=== PATIENT | male | born 1980 | race Caucasian/White ===

== ENCOUNTER 2021-01-29 08:38 | Emergency (ER) | payer OTHER, SELFPAY ==
[2021-01-29] VITALS (14 sets, daily range): BP systolic 108–134; BP diastolic 66–88; PULSE 81–95; RESP 17–32; TEMP 37.4; O2SAT 95–98
--- NOTE | ~2021-01-29 | XR_ITS ---
EXAMINATION: XR chest 2V 01/29/2021 09:09 INDICATION: Chest pain and hypertension PROCEDURE: 2 view chest COMPARISON: No prior studies for comparison. FINDINGS: The lungs are clear. Mild cardiomegaly. There are no pleural effusions. There is no pneumo thorax suspected. IMPRESSION: 1: NO ACUTE CARDIOPULMONARY DISEASE. Reviewed, dictated and finalized at location B. SCORER
--- NOTE | 2021-01-29 08:48 | ECG_ITS ---
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
[2021-01-29 09:02] LABS: Basophils Absolute Auto 0.1 K/mm3 (0.0-0.1); Basophils Percent Auto 1.5 % (0.2-1.2); Eosinophils Absolute Auto 0.2 K/mm3 (0-0.3); Eosinophils Percent Auto 3.7 % (0-4.4); Hematocrit 44.9 % (42.0-52.0); Hemoglobin 15.3 g/dL (14.0-18.0); Immature Granulocyte Absolute 0.02 K/mm3 (0.00-0.031); Immature Granulocyte Percent A 0.3 % (0-0.5); Lymphocytes Absolute Auto 1.68 K/mm3 (0.9-3.2); Lymphocytes Percent Auto 28.5 % (18.3-44.2); Mean Corpuscular HGB Conc 34.1 g/dl (32-36); Mean Corpuscular Hemoglobin 29.9 pg (26-34); Mean Corpuscular Volume 87.7 fl (80-100); Mean Platelet Volume 10.4 fl (7.4-10.4); Monocytes Absolute Auto 0.7 K/mm3 (0.1-0.6); Neutrophils Absolute Auto 3.2 K/mm3 (1.3-6.7); Platelet Count Result 219 k/mm3 (150-375); Red Blood Count 5.12 M/mm3 (4.6-6.20); Red Cell Distribution Width 12.6 % (11.5-14.5); White Blood Count 5.9 K/mm3 (4.5-10.0)
[2021-01-29 09:13] LABS: INR 0.9; Prothrombin Time 12.5 Seconds (11.1-14.7)
[2021-01-29 09:14] LABS: Partial Thromboplastin Time 27.5 SECONDS (22.3-36.8)
[2021-01-29 09:17] LABS: Alanine Aminotransferase 74 U/L (4-50); Albumin Level 4.8 g/dL (3.5-5.1); Alkaline Phosphatase 74 U/L (38-126); Anion Gap 9 mmol/L (8-16); Aspartate Amino Transferase 43 U/L (17-59); Bilirubin,Total 0.5 mg/dL (0.2-1.3); Blood Urea Nitrogen 13 mg/dL (9-20); Calcium 9.5 mg/dL (8.4-10.2); Carbon Dioxide 28 mmol/L (22-30); Chloride 96 mmol/L (98-107); Estimated Glomerular Filt Rate > 60; Glucose 103 mg/dL (65-110); Lipase 96 U/L (23-300); Potassium 4.4 mmol/L (3.4-5.0); Sodium 133 mmol/L (137-145)
[2021-01-29 09:28] LABS: Troponin I < 0.012 ng/mL (0.000-0.034)
[2021-01-29] MEDS: KETOROLAC 15 MG/ML VIAL (*BKC) IV PUSH (10:14)
--- NOTE | 2021-01-29 11:29 | ED.CHESTPAIN ---
HPI - Chest Pain General Chief Complaint: Chest Pain Stated Complaint: Chest pain. 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 Patient reports he has a history of hypertension and when he complained of discomfort to the right side of his chest he has coworkers told him that it was a sign of a heart attack. Patient reports that he checked his blood pressure and it was very elevated. The patient denies any syncopal episode, shortness of breath, nausea, vomiting. Patient denies pain presently. Patient denies smoking or history of cardiac event or MIs. Related Data Allergies Allergy/AdvReac Type Severity Reaction Status Date / Time No Known Allergies Allergy Unverified 03/25/18 09:20 Review of Systems Review of Systems: CONSTITUTIONAL: Denies fever, chills, or sweats. EYES: Denies visual changes, redness, or discharge. ENT: Denies rhinorrhea, congestion, sore throat, or otalgia. CARDIOVASCULAR: Reports right chest wall pain denies chest pain, palpitations, or edema. RESPIRATORY: Denies cough or dyspnea. GASTROINTESTINAL: Denies abdominal pain, nausea, vomiting, or diarrhea. GENITOURINARY: Denies dysuria or hematuria. SKIN: Denies rash or itching. MUSCULOSKELETAL: Denies back pain, joint pain, or myalgia. NEUROLOGIC: Denies headache, numbness, dizziness, or weakness. PSYCHIATRIC: Denies anxiety or depression. Exam Narrative: GENERAL: Well-appearing, well-nourished, and in no acute distress. No sign of discomfort playing on his cell phone. HEAD: Normocephalic, atraumatic. EYES: PERRLA and EOMI. ENT: Nares clear, no rhinorrhea or epistaxis. Mucous membranes moist. Or Bilateral TMs pearly hernandez nonbulging NECK: Supple. No adenopathy or masses. Range of motion intact. CHEST: Pain elicited with palpation of right pectoral muscle and activity of right arm. No pain at rest. Clear to auscultation. No respiratory distress. No wheezes rales or rhonchi HEART: Regular rate and rhythm. No murmur heard. Normal peripheral pulses. ABDOMEN: Soft, nontender, nondistended, normal active bowel sounds. EXTREMITIES: Normal range of motion. No edema. SKIN: Warm, dry, no rash. NEURO: No focal deficits. Alert and oriented x3. PSYCH: Normal mood and affect. Course Vital Signs Vital signs: Vital Signs Temperature 99.4 F 01/29/21 08:44 Pulse Rate 95 01/29/21 08:44 Respiratory Rate 18 01/29/21 08:44 Blood Pressure 134/88 01/29/21 08:44 Pulse Oximetry 98 01/29/21 08:44 Temperature 99.4 F 01/29/21 08:44 Pulse Rate 92 01/29/21 12:21 Respiratory Rate 32 H 01/29/21 12:21 Blood Pressure 108/66 01/29/21 11:20 Pulse Oximetry 97 01/29/21 12:21 MDM - Chest Pain MDM Narrative Medical decision making narrative: Patient does not have chest pain at this time. Patient's initial and delta troponin have been negative. Patient's heart score is 1. Patient does not show any signs of acute DE. Patient's pain appears to be musculoskeletal and patient has been given instructions on management. Patient has been instructed to follow-up with his primary care provider for further evaluation of the symptoms. Patient has been instructed to return to emergency department if he has any returning or emergent symptoms. Differential Diagnosis Differential diagnosis: Likely fracture of rib, pneumothorax, stable angina, unstable angina pectoris, atypical chest pain, st elevation myocardial infarction, costochondritis, chest pain and biliary colic Lab Data Result diagrams: 01/29/21 08:55 01/29/21 08:55 Labs: Lab Results 01/29/21 01/29/21 01/29/21 Range/Units 08:55 08:55 08:55 WBC 5.9
[2021-01-29 12:13] LABS: Troponin I < 0.012 ng/mL (0.000-0.034)
== END 2021-01-30 02:34 | disposition home or self-care (01) ==
PROVIDERS: Emergency Provider Emergency Medicine
DX: R07.89 Other chest pain (principal); I10 Essential (primary) hypertension; R94.31 Abnormal electrocardiogram [ECG] [EKG]
CPT/HCPCS: 36415; 71046; 80053; 83690; 84484; 85025; 85610; 85730; 93005; 96374; 99284; J1885

== ENCOUNTER 2022-11-08 13:38 | Emergency (ER) | payer OTHER, SELFPAY ==
--- NOTE | ~2022-11-08 | XR_ITS ---
EXAMINATION: XR hand RT min 3V DATE: 11/08/2022 14:42 INDICATION: Right hand pain post fall TECHNIQUE: Posteroanterior, oblique and lateral views of the right hand were obtained. COMPARISON: None. FINDINGS: Bone alignment is normal. No fracture. Mild osteoarthritis at the distal radioulnar joint. There is s ome soft tissue swelling at the radial side of the hand including at the bases of the first-third dig its. IMPRESSION: 1. No acute osseous abnormality. Reviewed, dictated and finalized at location A.
--- NOTE | ~2022-11-08 | XR_ITS ---
EXAMINATION: XR finger 4th LT min 2V INDICATION: Left fourth finger pain TECHNIQUE: Three views of the left fourth finger are obtained. COMPARISON: None available FINDINGS: The provided views are nonstandard. No definite fracture is identified. There is mild osteo arthritis of the interphalangeal joints. There is soft tissue swelling of the fourth finger. IMPRESSION: 1. No definite osseous abnormality identified, views nonstandard. Reviewed, dictated and finalized at location B.
--- NOTE | ~2022-11-08 | XR_ITS ---
EXAMINATION: XR knee LT 3V DATE: 11/08/2022 14:42 INDICATION: Left knee injury and pain. TECHNIQUE: 3 views of left knee were obtained. COMPARISON: Left knee radiographs 07/01/16 FINDINGS: Bone alignment is normal. No fracture. There is mild osteoarthritis of patellofemoral mandy rtment. No knee joint effusion. IMPRESSION: 1. Mild left knee osteoarthritis. Reviewed, dictated and finalized at location A.
[2022-11-08 13:40] VITALS: BP 108/74; PULSE 106; RESP 14; TEMP 36.3; O2SAT 99
[2022-11-08] MEDS: ACETAMINOPHEN 500 MG TABLET 1000 MG PO (15:07)
[2022-11-08] MEDS: IBUPROFEN 400 MG TABLET 800 MG PO (15:08)
--- NOTE | 2022-11-08 15:24 | WC.ED.TRAUMA ---
HPI - Trauma General Chief Complaint: Extremity Injury, Upper Stated Complaint: bilateral hand pain, fall Time Seen by Provider: 11/08/22 14:12 Source: patient Mode of arrival: ambulatory Limitations: no limitations History of Present Illness HPI narrative: 42-year-old male presents today with complaints of left knee pain, left fourth digit pain, and right hand pain after a fall he sustained at work. Patient states he thinks he missed a step when he hit his right knee on the ground his left fourth digit went underneath of him and his right hand hit the ground. Patient states prior to arrival he only noticed that his left knee was hurting but after arrival he noticed the other injuries. Patient has full range of motion to all extremities. Patient has not taken any analgesics prior to arrival. Related Data Allergies Allergy/AdvReac Type Severity Reaction Status Date / Time No Known Allergies Allergy Unverified 11/08/22 13:46 Review of Systems Review of Systems: All systems reviewed & are unremarkable except as noted in HPI and below Exam Const: General: cooperative, healthy appearing, comfortable, no acute distress and well developed Orientation/consciousness: patient oriented x3 HENMT: Head: normal to inspection Eyes: General: appearance normal, both eyes and all related structures Resp: Effort & Inspection: normal respiratory effort and able to speak in complete sentences Auscultation: clear to auscultation bilaterally Cardio: Rate: regular rate Rhythm: regular rhythm Heart sounds: S1 normal heart sound present and S2 normal heart sound present Neuro: General: patient oriented x3 Course Vital Signs Vital signs: Vital Signs Temperature 97.3 F L 11/08/22 13:40 Pulse Rate 106 H 11/08/22 13:40 Respiratory Rate 14 11/08/22 13:40 Blood Pressure 108/74 11/08/22 13:40 Pulse Oximetry 99 11/08/22 13:40 Oxygen Delivery Room Air 11/08/22 13:40 Temperature 97.3 F L 11/08/22 13:40 Pulse Rate 98 11/08/22 15:38 Respiratory Rate 14 11/08/22 15:38 Blood Pressure 116/77 11/08/22 15:38 Pulse Oximetry 99 11/08/22 15:38 Oxygen Delivery Room Air 11/08/22 13:40 MDM - Trauma MDM Narrative Medical decision making narrative: 42-year-old male HPI as noted. Differentials to include finger fracture, hand fracture, knee pain, fall. Work-up includes a x-ray of the right hand x-ray of the left fourth digit and x-ray of the left knee. Patient with full range of motion but tenderness to palpation to all 3 areas. No deformity noted. X-ray of the right hand shows swelling to the radial side of the hand. No ecchymosis noted on that hand. Again patient with full range of motion. Finger x-ray shows no acute process. Knee x-ray also shows no acute process. All 3 x-rays did show arthritis. Patient was informed. Tylenol ibuprofen given. Patient able to ambulate and was discharged. Medical Records Attestation: I reviewed the patient's medical records. Imaging Data Attestation: I personally reviewed and interpreted this imaging study as follows: Radiologist's impression: Impressions Finger X-Ray 11/08/22 14:49 IMPRESSION: 1. No definite osseous abnormality identified, views nonstandard. Hand X-Ray 11/08/22 14:49 IMPRESSION: 1. No acute osseous abnormality. Knee X-Ray 11/08/22 14:49 IMPRESSION: 1. Mild left knee osteoarthritis. Discharge Plan Discharge Clinical Impression: Fall, Acute pain of left knee, Hand pain, right, Finger pain, Arthritis Patient Disposition: Home, Self-Care Condition: Stable Instructions: Antibiotic Form Additional Instructions: Your xrays showed no acute process today. Follow up with primary if pain persists as further work up might be needed at that time. Tylenol/ibuprofen per package directions for pain. Follow-up/Referrals: PHYSICIAN NOT ON STAFF,NONSTAFF [Primary Care Provider] - Time of Disposition: 15:
[2022-11-08 15:38] VITALS: BP 116/77; PULSE 98; RESP 14; O2SAT 99
== END 2022-11-08 15:48 | disposition home or self-care (01) ==
PROVIDERS: Emergency Provider Nurse Practitioner Family
DX: M25.562 Pain in left knee (principal); M79.641 Pain in right hand; M79.645 Pain in left finger(s); W10.9XXA Fall (on) (from) unspecified stairs and steps, initial encounter; Y99.0 Civilian activity done for income or pay
CPT/HCPCS: 73130; 73140; 73562; 99284; A9270

== ENCOUNTER 2023-12-06 12:24 | Emergency (ER) | payer SELFPAY ==
--- NOTE | ~2023-12-06 | CT_ITS ---
EXAMINATION: CT abdomen pelvis wo con DATE: 12/06/2023 16:09 INDICATION: L flank pain TECHNIQUE: Computed tomography (CT) of the abdomen and pelvis was performed without intravenous contr ast. Automated exposure control and iterative reconstruction technique were employed. The dose-length product was 559.88 mGy-cm. COMPARISON: None. FINDINGS: Lower thorax: Unremarkable Liver: Fatty infiltration. Biliary/Gallbladder: Gallbladder is normal. No bile duct dilation. Pancreas: No mass or duct dilation. Spleen: Normal. Adrenals:No mass. Kidneys: No suspicious mass, obstructing stone, or hydronephrosis. GI tract: No small or large bowel dilation. Normal appendix. Mesentery/Peritoneum: No ascites, mass, or free air. Retroperitoneum: No mass. Atherosclerotic abdominal aortic and/or arterial calcifications. Pelvis: Distended urinary bladder with mild wall thickening. Normal sized prostate. Soft Tissues: Small, fat-containing umbilical and bilateral inguinal hernias Bones: No acute osseous finding. IMPRESSION: Hepatic steatosis. Distended urinary bladder with wall thickening, correlate with urinalysis. Reviewed, dictated and finalized at location K.
[2023-12-06 12:27] VITALS: BP 105/65; PULSE 81; RESP 16; TEMP 36.2; O2SAT 99
--- NOTE | 2023-12-06 14:41 | ED.ABDPAIN ---
HPI - Abdominal Pain General Chief Complaint: Abdominal Pain <Munira Barahona PA-C - Last Filed: 12/06/23 14:43> Stated Complaint: abd pain <Munira Barahona PA-C - Last Filed: 12/06/23 14:43> Time Seen by Provider: 12/06/23 14:50 <Munira Barahona PA-C - Last Filed: 12/06/23 14:43> Focused HPI: 43-year-old male with no past medical history presents to the emergency department for left flank pain for 1 day. Patient states the pain is worse when he lifts up heavy objects. States he has a remote history of similar pain but is unsure with the cause of it was. Denies dysuria, hematuria, N/V/D, history of kidney stones, fever. States he took ibuprofen this morning with some improvement GENERAL: Well-appearing, well-nourished, and in no acute distress. HEAD: Normocephalic, atraumatic. CHEST: Clear to auscultation. ?No respiratory distress. ABD: Minimal tenderness to the left flank. No rebound, guarding rigidity. No CVA tenderness. HEART: Regular rate and rhythm.? NEURO: ?Alert and oriented x3. Patient screened in triage and initial orders placed.? ?Additional care and disposition to be based upon?diagnostic testing and treatment. <Munira Barahona PA-C - Last Filed: 12/06/23 14:43> Related Data Allergies/Adverse Reactions: Allergies Allergy/AdvReac Type Severity Reaction Status Date / Time No Known Allergies Allergy Unverified 11/08/22 13:46 <Munira Barahona PA-C - Last Filed: 12/06/23 14:43> Review of Systems Review of Systems: All systems reviewed & are unremarkable except as noted in HPI and below <Paul Jeffers MD - Last Filed: 12/06/23 18:58> PMFSH Past Medical History Medical History: Medical History (Updated 12/06/23 @ 18:54 by Paul Jeffers MD) No significant past medical history <Munira Barahona PA-C - Last Filed: 12/06/23 14:43> Surgical History Surgical History: Surgical History (Updated 12/06/23 @ 18:54 by Paul Jeffers MD) No significant past surgical history <Munira Barahona PA-C - Last Filed: 12/06/23 14:43> Social History Social History: Social History (Updated 12/06/23 @ 18:54 by Paul Jeffers MD) Smoking status: Never smoker Alcohol intake: never Substance use: never <Munira Barahona PA-C - Last Filed: 12/06/23 14:43> Exam Narrative: GENERAL: Well-developed, well-nourished, and in no acute distress. HEAD: Normocephalic, atraumatic. EYES: PERRLA and EOMI. CHEST: Clear to auscultation. No respiratory distress. No wheezes rales or rhonchi HEART: Regular rate and rhythm. No murmur heard. Normal peripheral pulses. ABDOMEN: Soft, mild tenderness to palpation over the left flank without rebound or guarding, nondistended, normal active bowel sounds. No CVA tenderness EXTREMITIES: Normal range of motion. No edema. SKIN: Warm, dry, no rash. NEURO: Alert and oriented x3. No focal deficit. Moving all 4 limbs spontaneously PSYCH: Normal mood and affect. <Paul Jeffers MD - Last Filed: 12/06/23 18:58> Course Course Emergency Course: 15:10 - I agree with the assessment as documented in the [facility]SE. 17:16 - CBC unremarkable. Chemistries demonstrate mild hyponatremia sodium 136 but is otherwise unremarkable. UA unremarkable. CT abdomen pelvis demonstrates a distended bladder but is otherwise not concerning for acute intra-abdominal process. Bladder scan prior to urination demonstrate approximately 500 cc of fluid in the bladder. The patient voided approximately 200 cc with approximately 300 cc retained thereafter. I have concern for urinary retention as the possible cause of the patient's pain. I discussed treatment options including catheter placement, tamsulosin and urology follow-up. The patient requests to avoid catheter placement and states he will take oral medications and follow-up with his primary care doctor and Urology. We discussed the risks of avoiding catheter placement, includ
[2023-12-06 14:52] VITALS: BP 118/75; PULSE 84; RESP 20; TEMP 36.6; O2SAT 99
[2023-12-06 15:03] LABS: Add Urine Microscopic? NO; Appearance Urine Clear (Clear); Bilirubin Urine Negative (Negative); Blood Urine Negative (Negative); Color Urine Yellow (Yellow); Glucose Urine UA Negative (Negative); Ketones Urine Negative (Negative); Leukocyte Esterase Ur Negative LEU/UL (Negative); Nitrate Urine Negative (Negative); Protein Urine Negative (Negative); Specific Grav Ur 1.007 (1.001-1.035); Urobilinogen Urine 0.2 mg/dL (<2.0); pH Urine 6.5 (5.0-9.0)
[2023-12-06 15:20] LABS: Basophils Absolute Auto 0.1 K/mm3 (0.0-0.1); Basophils Percent Auto 1.6 % (0.2-1.2); Eosinophils Absolute Auto 0.2 K/mm3 (0-0.3); Hematocrit 42.6 % (42.0-52.0); Hemoglobin 14.6 g/dL (14.0-18.0); Immature Granulocyte Absolute 0.02 K/mm3 (0.00-0.031); Immature Granulocyte Percent A 0.3 % (0-0.5); Lymphocytes Absolute Auto 2.17 K/mm3 (0.9-3.2); Mean Corpuscular HGB Conc 34.3 g/dl (32-36); Mean Corpuscular Volume 87.5 fl (80-100); Mean Platelet Volume 10.8 fl (7.4-10.4); Monocytes Absolute Auto 0.8 K/mm3 (0.1-0.6); Monocytes Percent Auto 12.1 % (2.6-8.5); Neutrophils Absolute Auto 3.1 K/mm3 (1.3-6.7); Platelet Count Result 229 k/mm3 (150-375); Red Blood Count 4.87 M/mm3 (4.6-6.20); Red Cell Distribution Width 12.8 % (11.5-14.5); White Blood Count 6.4 K/mm3 (4.5-10.0)
[2023-12-06 15:30] LABS: Alanine Aminotransferase 38 U/L (6-50); Albumin Level 4.5 g/dL (3.5-5.1); Alkaline Phosphatase 59 U/L (38-126); Anion Gap 9 mmol/L (4-12); Aspartate Amino Transferase 35 U/L (17-59); Bilirubin,Total 0.5 mg/dL (0.2-1.3); Blood Urea Nitrogen 11 mg/dL (9-20); Calcium 9.3 mg/dL (8.4-10.2); Carbon Dioxide 29 mmol/L (22-30); Chloride 98 mmol/L (98-107); Estimated Glomerular Filt Rate > 60; Glucose 90 mg/dL (65-110); Lipase 82 U/L (23-300); Sodium 136 mmol/L (137-145)
[2023-12-06] MEDS: ACETAMINOPHEN 500 MG TABLET 1000 MG PO (16:33)
[2023-12-06 17:37] VITALS: BP 104/68; PULSE 86; RESP 18; TEMP 37.1; O2SAT 99
== END 2023-12-06 17:39 | disposition home or self-care (01) ==
PROVIDERS: Physician Assistant; Emergency Provider Preventive Medicine Aerospace Medicine
DX: R10.9 Unspecified abdominal pain (principal); R33.9 Retention of urine, unspecified; K76.0 Fatty (change of) liver, not elsewhere classified
CPT/HCPCS: 36415; 74176; 80053; 81003; 83690; 85025; 99284; A9270

== ENCOUNTER 2024-01-06 11:49 | Emergency (ER) | payer SELFPAY ==
[2024-01-06 11:57] VITALS: BP 111/88; PULSE 83; RESP 16; TEMP 36.6; O2SAT 99
--- NOTE | 2024-01-06 12:29 | ED.EAR ---
HPI - Ear Problem General Chief complaint: Ear Stated complaint: Clean ears Time Seen by Provider: 01/06/24 12:30 Source: patient Mode of arrival: ambulatory Limitations: no limitations History of Present Illness HPI Narrative: 43-year-old male presented for cerumen impaction requesting ear cleaning. He states he was seen by the rehabilitation teacher and was told he has significant buildup. Reports right ear pain and decreased hearing bilaterally. He denies tinnitus, dizziness. MD Complaint: ear pain Related Data Home Medications Medication Instructions Recorded Confirmed ergocalciferol (vitamin D2) 1,250 1,250 mcg PO DAILY 01/06/24 01/06/24 mcg (50,000 unit) capsule lisinopril 20 mg tablet 20 mg PO DAILY 01/06/24 01/06/24 Allergies Allergy/AdvReac Type Severity Reaction Status Date / Time No Known Allergies Allergy Verified 01/06/24 12:14 Review of Systems Review of Systems: CONSTITUTIONAL: Denies malaise, chills, or fever. EYES: Denies visual changes, redness, or discharge. ENT: Denies rhinorrhea, congestion, sinus pain, and sore throat. Reports ears clogged CARDIOVASCULAR: Denies chest pain, palpitations, or edema. RESPIRATORY: Denies cough or dyspnea. SKIN: Denies rash or itching. NEUROLOGIC: Denies headache. All systems reviewed & are unremarkable except as noted in HPI and below PMFSH Past Medical History Medical History No significant past medical history Surgical History Surgical History No significant past surgical history Social History Social History Smoking status: Never smoker Alcohol intake: never Substance use: never Comments At time of signature, agree with nursing past medical, surgical, social and family history. There is no relevant family history pertinent to the presenting complaint Exam Narrative: GENERAL: Well-appearing EYES: conjunctivae clear ENT: Nares clear. Mucous membranes moist. TMs unable to visualize bilaterally due to cerumen impactions. Oropharynx not erythematous without lesions. CHEST: Clear to auscultation, HEART: Regular rate and rhythm NEURO: Alert and oriented x3. PSYCH: Normal mood and affect Course Course Emergency Course: Patient is aware of diagnosis, understands and agrees to treatment plan. Anticipatory guidance given. Patient agrees to follow-up as directed and is aware of reasons to seek care at the emergency department. Portions of this record may have been created with voice recognition software Level of Care: Express Care Visit Vital Signs Vital signs: Vital Signs Temperature 97.8 F 01/06/24 11:57 Pulse Rate 83 01/06/24 11:57 Respiratory Rate 16 01/06/24 11:57 Blood Pressure 111/88 01/06/24 11:57 Pulse Oximetry 99 01/06/24 11:57 Oxygen Delivery Room Air 01/06/24 11:57 Temperature 97.8 F 01/06/24 11:57 Pulse Rate 83 01/06/24 11:57 Respiratory Rate 16 01/06/24 11:57 Blood Pressure 111/88 01/06/24 11:57 Pulse Oximetry 99 01/06/24 11:57 Oxygen Delivery Room Air 01/06/24 11:57 Reviewed Procedures Ear Wax Removal Both Ears: Cerumenolytic Used: other ( equal parts warm water and hydrogen peroxide) Results: Re-examined: cerumen removed completely TM Examination: TM(s) intact, normal appearance (Left) and other (Unable to visualize Right TM due to canal swelling and drainage c/w otitis externa) Ear Canal Exam: bleeding Noted (scant, right canal) Patient Tolerated Procedure: well Technique: ear canal irrigated and ear canal curetted Additional Comments: Pt noted to have Right otitis externa after cerumen removed. Also, pieces of dried cotton balls were removed from both ear canals. Medical Decision Making MDM Narrative Medical decision making narrative: Pt with bilateral cerumen impaction, Right otitis externa after cerumen removed. Pt also noted to have pieces of dried cotton balls removed from both ear canals. Reviewed Rx's with pt and sister. Pt to f/u with hearing center. Advised supportive measures and signs/symptoms to go to the ER. Patient is appropriate for outpatient treatment and follow-up. Differential Diagnosis Differential Diagnosis: Coronavirus, strep pharyngitis, allergic rhinitis, upper respiratory tract infection, sinusitis, rhinosinusitis, nasopharyngitis, viral pharyngitis, otitis media, otitis externa, eustachian tube dysfunction, foreign body, cerumen impaction. Vital Signs Vital Signs: Vital Signs Temperature 97.8 F 01/06/24 11:57 Pulse Rate 83 01/06/24 11:57 Respiratory Rate 16 01/06/24 11:57 Blood Pressure 111/88 01/06/24 11:57 Pulse Oximetry 99 01/06/24 11:57 Oxygen Delivery Room Air 01/06/24 11:57 Temperature 97.8 F 01/06/24 11:57 Pulse Rate 83 01/06/24 11:57 Respiratory Rate 16 01/06/24 11:57 Blood Pressure 111/88 01/06/24 11:57 Pulse Oximetry 99 01/06/24 11:57 Oxygen Delivery Room Air 01/06/24 11:57 Discharge Plan Discharge Clinical Impression: Cerumen impaction, Otitis externa Patient Disposition: Home, Self-Care Condition: Stable Instructions: Antibiotic Form, How to Use Ear Drops (ED) Additional Instructions: Use the antibiotic drops as directed to right ear. Do NOT put anything into the ear (including cotton balls) Once infection is healed, you can use a earwax softening agent such as [id number] Debrox or a mixture of 1 part hydrogen peroxide in 1 part warm water several times weekly to keep your earwax soft and prevent further impaction. Please follow-up with your primary care doctor if you develop new symptoms. 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 If you have urgent concerns please go to the ER. Prescriptions: New ofloxacin 0.3 % drops 10 drp RIGHT EAR DAILY 7 Days Qty: 10 0RF No Action lisinopril 20 mg tablet 20 mg PO DAILY ergocalciferol (vitamin D2) 1,250 mcg (50,000 unit) capsule 1,250 mcg PO DAILY Follow-up/Referrals: Koko,SUDHA Velez [Primary Care Provider] -
== END 2024-01-06 13:05 | disposition home or self-care (01) ==
PROVIDERS: Emergency Provider Nurse Practitioner Family; PCP Nurse Practitioner Family
DX: H61.23 Impacted cerumen, bilateral (principal); H60.91 Unspecified otitis externa, right ear
CPT/HCPCS: 69210; 99213; G0463

== ENCOUNTER 2024-01-16 15:49 | Emergency (ER) | payer OTHER, SELFPAY ==
--- NOTE | ~2024-01-16 | XR_ITS ---
HISTORY: ground level fall today at work. limited ROM COMPARISON: None TECHNIQUE: 2 views of the right humerus were performed FINDINGS: No acute fracture. The acromioclavicular joint is unremarkable. The visualized portion of the scapula is unremarkable Normal mineralization. IMPRESSION: No acute right humerus fracture, as detailed above. Reviewed, dictated and finalized at location A. OPERATOR
--- NOTE | ~2024-01-16 | CT_ITS ---
History: Ground-level fall PROCEDURE: CT left shoulder without intravenous contrast. COMPARISON: None TECHNIQUE: Multiple contiguous axial images of the left shoulder were performed without the administration of in travenous contrast. DLP: 299 mGy-cm FINDINGS: Oblique lucency within the mid portion of the spine of the left scapula felt to be a nutrient foramen rather than acute fracture. In addition, there is an oblique lucency with dense osseous structures along the lateral margin of th e humeral head, which is well-corticated likely not an acute fracture, possibly calcific tendinosis. Impression: No discrete acute fracture deformity within the left shoulder. Follow-up examination with noncontrast enhanced MRI for additional characterization is recommended. Reviewed, dictated and finalized at location A. CULTURAL CONSULTANT Impression: No discrete acute fracture deformity within the left shoulder. Follow-up examin ation with noncontrast enhanced MRI for additional characterization is recommen ded.
--- NOTE | ~2024-01-16 | XR_ITS ---
HISTORY: ground level fall at work today. limited ROM COMPARISON: None TECHNIQUE: 2 views of the left shoulder were performed FINDINGS: No acute fracture. Two rounded ossific densities identified adjacent to the humeral head, for which calcific tendinosis is suspected. No internal or external views are submitted, limiting the evaluation for an acute humer al head fracture or dislocation. The visualized portion of the adjacent left lung is clear. IMPRESSION: Limited examination of the left shoulder, as detailed above. Reviewed, dictated and finalized at location A. OYEE SERVICE OFFICER
[2024-01-16 15:51] VITALS: BP 119/93; PULSE 57; RESP 18; TEMP 36.8; O2SAT 99
[2024-01-16 15:58] VITALS: BP 119/93; O2SAT 98
[2024-01-16] MEDS: MORPHINE SULFATE (*CRX) 2 MG/ML INJ IV PUSH (16:55)
[2024-01-16 17:47] VITALS: BP 131/70; PULSE 70; RESP 16; O2SAT 97
--- NOTE | 2024-01-16 18:14 | ED.UPPEXIN ---
HPI - Extremity Injury (Upper) General Chief Complaint: Extremity Injury, Upper Stated Complaint: RUE pain s/p mechanical GLF Time Seen by Provider: 01/16/24 16:03 History of Present Illness HPI narrative: Patient is a 44-year-old male who presents ER status post fall. He is at work when he stepped on a dish that was on the ground causing him to fall while holding another dish. He fell on outstretched arms. He has pain to the right she humerus in the middle the shaft and he also has pain at the left shoulder. Has decreased range of motion at the left shoulder. Did not lose consciousness or strike his head. No numbness or tingling to the extremities. Related Data Home Medications Medication Instructions Recorded Confirmed ergocalciferol (vitamin D2) 1,250 1,250 mcg PO DAILY 01/06/24 01/06/24 mcg (50,000 unit) capsule lisinopril 20 mg tablet 20 mg PO DAILY 01/06/24 01/06/24 Allergies Allergy/AdvReac Type Severity Reaction Status Date / Time No Known Allergies Allergy Verified 01/06/24 12:14 Review of Systems Review of Systems: All systems reviewed & are unremarkable except as noted in HPI and below Constitutional: Constitutional: Reports no additional constitutional complaints Cardiovascular: Cardiovascular: Reports no additional cardiovascular complaints Respiratory: Respiratory: Reports no additional respiratory complaints Musculoskeletal: Musculoskeletal: Reports arthralgias and Denies joint swelling Neurologic: Reports system reviewed and no additional complaints, except as documented PMFSH Past Medical History Medical History (Updated 01/16/24 @ 19:25 by Barry Ford MD) No significant past medical history Surgical History Surgical History (Updated 01/16/24 @ 18:19 by Barry Ford MD) H/O wrist surgery Social History Social History Smoking status: Never smoker Alcohol intake: never Substance use: never Exam Narrative: GENERAL: Well-appearing, well-nourished, and in no acute distress. HEAD: Normocephalic, atraumatic. ENT: Mucous membranes moist. CHEST: Clear to auscultation. No respiratory distress. HEART: Regular rate and rhythm. Normal peripheral pulses. EXTREMITIES: TTP at the left shoulder with limited ROM, normal ROM at the left elbow/wrist. Mild tenderness right mid-humerus SKIN: Warm, dry, no rash. NEURO: Alert and oriented x3. PSYCH: Normal mood and affect. Course Course Emergency Course: Patient informed of results. Shoulder sprain, discussed calcific tendinosis, discharge home. Vital Signs Vital signs: Vital Signs Temperature 98.3 F 01/16/24 15:51 Pulse Rate 57 L 01/16/24 15:51 Respiratory Rate 18 01/16/24 15:51 Blood Pressure 119/93 H 01/16/24 15:51 Pulse Oximetry 99 01/16/24 15:51 Oxygen Delivery Room Air 01/16/24 15:51 Temperature 98.3 F 01/16/24 15:51 Pulse Rate 70 01/16/24 17:47 Respiratory Rate 16 01/16/24 17:47 Blood Pressure 131/93 H 01/16/24 18:17 Pulse Oximetry 98 01/16/24 18:17 Oxygen Delivery Room Air 01/16/24 15:51 MDM - Extremity Injury (Upper) Imaging Data Radiologist's impression: ITS Impressions Shoulder X-Ray 01/16/24 16:44 IMPRESSION: Limited examination of the left shoulder, as detailed above. Humerus X-Ray 01/16/24 16:48 IMPRESSION: No acute right humerus fracture, as detailed above. Shoulder CT 01/16/24 19:12 Impression: No discrete acute fracture deformity within the left shoulder. Follow-up examination with noncontrast enhanced MRI for additional characterization is recommended. Discharge Plan Discharge Clinical Impression: Shoulder sprain Patient Disposition: Home, Self-Care Condition: Stable Instructions: Shoulder Sprain (ED), P.R.I.C.E. Treatment (ED) Additional Instructions: Take ibuprofen as needed for pain. Return to the ER if you suffer a new injury. Prescriptions: New ibuprofen 600 mg tablet 600 mg PO TID Qty: 14 0RF No Action lisinopril 20 mg tablet 20 mg PO DAILY ergocalciferol (vitamin D2) 1,250 mcg (50,000 unit) capsule 1,250 mcg PO DAILY ofloxacin 0.3 % drops 10 drp RIGHT EAR DAILY 7 Days Qty: 10 0RF Follow-up/Referrals: Koko,SUDHA Velez [Primary Care Provider] - 1 Week
[2024-01-16 18:17] VITALS: BP 131/93; O2SAT 98
== END 2024-01-16 19:46 | disposition home or self-care (01) ==
PROVIDERS: Emergency Provider Emergency Medicine; PCP Nurse Practitioner Family
DX: S43.402A Unspecified sprain of left shoulder joint, initial encounter (principal); W18.09XA Striking against other object with subsequent fall, initial encounter
CPT/HCPCS: 73030; 73060; 73200; 96374; 99284; J2270

== ENCOUNTER 2024-08-31 09:42 | Emergency (ER) | payer OTHER, SELFPAY ==
--- OUTSIDE RECORDS SUMMARY | 2024-08-31 09:53 | XMS_ITS | Clinical Summary ---
Author Organization [facility] Address [address] [place] [address] Phone Care Team Providers Care Family Lawyer Name Role Phone Provider, None Primary Care Provider Unavailabl e Allergies No known active allergies Medications azithromycin (ZITHROMAX) 250 MG Tablet take 1 tab po daily for 4 days 4 Tab 8 Active albuterol (PROVENTIL HFA, VENTOLIN HFA) 108 (90 Base) MCG/ACT Aerosol Solution take 2 Puffs by inhalation every 4 hours as needed for Wheezing. 1 Inhaler 8 Active ibuprofen (MOTRIN) 800 MG Tablet Take 1 Tab by mouth every 8 hours. 30 Tab 8 Active ondansetron (ZOFRAN) 4 MG Tablet Take 1 Tablet by mouth every 8 hours as needed for Nausea - 1st line. 10 Tablet 2 Active albuterol (PROVENTIL, VENTOLIN) (2.5 MG/3ML) 0.083% Nebulizer Soln 3 mL by Nebulization route every 6 hours as needed for Wheezing. 75 mL 2 Active Social History Tobacco Use Types Packs/Day Years Used Date Smoking Tobacco: Never Smokeless Tobacco: Never Alcohol Use Standard Drinks/Week Comments No 0 (1 standard drink = 0.6 oz pur e alcohol) Sex and Gender Information Value Date Recorded Sex Assigned at Not on file Legal Sex Male 8:34 PM CDT Gender Identity Not on file Sexual Orientation Not on file Last Filed Vital Signs Vital Sign Reading Time Taken Comments Blood Pressure 124/80 08/04/2022 10:54 AM CDT Pulse 84 08/04/2022 10:54 AM CDT Temperature 37.1 C (98.7 F) 08/04/2022 9:56 AM CDT Respiratory Rate 18 08/04/2022 10:54 AM CDT Oxygen Saturation 99% 08/04/2022 10:54 AM CDT Inhaled Oxygen Concentration - - Weight 78.6 kg (173 lb 4.5 oz) 08/04/2022 9:56 A M CDT Height 147.3 cm (4' 10) 01/11/2022 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 Body Mass Index 36.22 01/11/2022 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 DEALER Plan of Treatment Health Maintenance Due Date Last Done Comments Hepatitis C Virus (HCV) Screening 1978 TdaP Immunization 1978 Hepatitis B Immunization (1 of 3 - 19+ 3-dose series) 1997 Cologuard 2023 Colonoscopy 2023 Colorectal Cancer Screening 2023 Immunochemical Fecal Occult Blood 2023 SARS-COV-2 Immunization ( season) 2023 Influenza Immunization (Seas on Ended) 2024 01/21/2022, 02/16/2021, 12/07/2018 Respiratory Syncytial Virus (RSV) Immunization (Adult) (1 - 1-dose 75+ series) 2053 Human Papillomavirus (HPV) Immunization Aged Out No longer eligible b ased on patient's age to complete this topic Meningococcal Immunization (ACWY) Aged Out No longer eligible b ased on patient's age to complete this topic Pneumococcal Immunization Combined Aged Out No longer eligible b ased on patient's age to complete this topic Rotavirus Immunization Aged Out No lo nger eligible based on patient's age to complete this topic Insurance [place] Care Teams Family Lawyer Relationship Specialty Start Date End Date Provider, None [place] PCP - General 10/01/21
--- OUTSIDE RECORDS SUMMARY | 2024-08-31 09:53 | XMS_ITS | Clinical Summary ---
Author Organization [facility] [employer] [facility] Address [address] [place] [address] Care Team Providers Care Office Technology Professor Name Role Phone Cristiana Hi Rasheed TECHNOLOGY SUPPORT ANALYST-ELEVATOR ERECTOR HELPER Primary Care Provider [phone] Source Comments [facility],non-owned Affiliates and Associated Physician Practices is amultiple site organization consisting of ambulatory clinics and hospital sitesin [place], [place], [place] and [place]. This disclosure is being madepursuant to the Care Everywhere program and may not contain all information available regarding this patient. Last updated 17.[facility] [employer] [facility] Allergies Active Allergy Reactions Criticality Noted Date Comments Tramadol 02/04/2013 Medications * Be aware that medications may not be up to date on this document. Alwaysverify current medications with the patient. ibuprofen (MOTRIN) 800 MG tablet Take 1 Tab by mouth 3 times daily as needed for Pain. 20 Tab 0 02/04/2013 Active hydrocodone-acet aminophen 5-500 MG tablet Take 1-2 Tabs by mouth 4 times daily as needed for Pain. 20 Tab 0 02/04/2013 Active metaxalone (SKELAXIN) 800 MG tablet Take 1 Tab by mouth every 8 hours as needed for Muscle Spasms. 10 Tab 0 02/04/2013 Active naproxen sodium (ALEVE) 220 MG tablet Take 1 Tab by mouth 2 times daily. 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 Gender Identity Not on file Sexual Orientation Not on file Last Filed Vital Signs Vital Sign Reading Time Taken Comments Blood Pressure 148/29 05/29/2014 4:05 PM CDT Pulse 81 05/29/2014 2:29 PM CDT Temperature 36.6 C (97.8 F) 05/29/2014 2:29 PM CDT Respiratory Rate 18 05/29/2014 2:29 PM CDT Oxygen Saturation 99% 05/29/2014 4:11 PM CDT Inhaled Oxygen Concentration - - Weight 68 kg (150 lb) 05/29/2014 2:29 PM CDT Height 152.4 cm (5') 05/29/2014 2:29 PM CDT Body Mass Index 29.29 05/29/2014 2:29 PM CDT Plan of Treatment Health Maintenance Due Date Last Done Comments COLOGUARD (AGES 45-75) - COL ON CA SCREENING 1978 COLON MONITORING 1978 COLONOSCOPY - COLON CA SCREENING 1978 CT COLONOGRAPHY - COLON CA SCREENING 1978 Colorectal Cancer Screening 1978 FIT - COLON CA SCREENING 1978 FLEX SIG - COLON CA SCREENING 1978 LIPID TESTING 1978 HIV SCREENING 1993 HEPATITIS C SCREENING 01/10/1996 DTAP/TDAP/TD VACCINES (1 - Tdap) 1997 HEPATITIS B VACCINE (1 of 3 - 19+ 3-dose series) 1997 COVID-19 VACCINE (1 - 2023-2 5 season) 2023 DEPRESSION SCREENING 03/03/2024 INFLUENZA VACCINE (Season Ended) 2024 ZOSTER VACCINE (1 of 2) 01/15/2028 HIB VACCINE Aged Out No longer eligi ble based on patient's age to complete this topic HPV VACCINE Aged Out No longer eligi ble based on patient's age to complete this topic MENINGOCOCCAL (Group B) VACC INE SHARED DECISION-MAKING Aged Out No longer eligibl e based on patient's age to complete this topic MENINGOCOCCAL GROUPS A/C/Y/W VACCINE Aged Out No longer eligible b ased on patient's age to complete this topic PNEUMOCOCCAL VACCINE Aged Out No long er eligible based on patient's age to complete this topic Insurance [facility] Care Teams Office Technology Professor Relationship Specialty Start Date End Date Hi Zendejas APRN-MELISSA PCP - General 12/29/18
--- OUTSIDE RECORDS SUMMARY | 2024-08-31 09:53 | XMS_ITS | Referral Summary ---
Author Organization [facility] Address [address] [place] [address] Care Team Providers Care Crop Farmers Name Role Phone Rosie Sutherland AIRPLANE CLEANER Primary Care Provider [phone] Encounters Date Type Department Care Team Description 07/13/2024 11:15 AM CDT Office Visit [facility] at [address] [address] Zehra Borrero NP Acute cough (Primary Dx); Dental abscess from Last 3 Months Allergies No known active allergies Medications ibuprofen (ADVIL,MOTRIN) 800 mg tablet Take 1 tablet (800 mg total) by mouth 3 (three) times a day. 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 Gender Identity Not on file Sexual Orientation Not on file Last Filed Vital Signs Vital Sign Reading Time Taken Comments Blood Pressure 125/79 07/13/2024 10:56 AM CDT Pulse 85 07/13/2024 10:56 AM CDT Temperature 36.5 C (97.7 F) 07/13/2024 10:56 AM CDT Respiratory Rate 20 07/13/2024 10:56 AM CDT Oxygen Saturation 99% 07/13/2024 10:56 AM CDT Inhaled Oxygen Concentration - - Weight 83.5 kg (184 lb) 07/13/2024 10:56 AM CDT Height 149.9 cm (4' 11) 06/18/2021 10:46 PM CDT Body Mass Index 37.16 06/18/2021 10:46 PM CDT Plan of Treatment Not on file Procedures Procedure Name Priority Date/Time Associated Diagnosis Comments POC INFLUENZA A/B, COVID-19 ANTIGEN Routine 07/13/2024 11:30 AM CDT Acute cough Dental abscess from Last 3 Months Results * POC Influenza A/B, COVID-19 antigen (07/13/2024 11:30 AM CDT) Influenza A Ag, POC Negative Negative [facility] Influenza B Ag, POC Negative Negative [facility] COVID-19 Ag POC Presumptive Negative Presumptive Negative, Invalid [facility] Nasal 07/13/2024 11:3 0 AM CDT us Zehra Borrero AIRPLANE CLEANER POINT OF CARE TEST ORDERAB LES Final Result Performing Organization Address City/State/[facility] Co de Phone Number [facility] [address] [place] [address], [facility] from Last 3 Months Insurance [facility] Care Teams Crop Farmers Relationship Specialty Start Date End Date Rosie Sutherland NP [address] [address] PCP - General Family Medicine 07/27/24
--- OUTSIDE RECORDS SUMMARY | 2024-08-31 09:53 | XMS_ITS | Clinical Summary ---
Author Organization [facility] Address [address] [place] [address] Care Team Providers Care Facilities Maintenance Worker Name Role Phone KokoRosie NP Primary Care Provider Allergies No known active allergies Medications ibuprofen (ADVIL,MOTRIN) 800 mg tablet Take 1 tablet (800 mg total) by mouth 3 (three) times a day. 21 tablet 8 Active Additional Information Patient not taking.Reported on 07/13/2024 lisinopriL (PRINIVIL,ZESTR [place]) 20 mg tablet Take 1 tablet (20 mg total) by mouth daily 5 Active Active Problems No known active problems Encounters Date Type Department Care Team Description 07/13/2024 11:15 AM CDT Office Visit [facility] at [address] [address] Zehra Borrero NP Acute cough (Primary Dx); Dental abscess from Last 3 Months Surgical History Surgery Date Site/Laterality Comments TYMPANOSTOMY Medical History Medical History Date Comments Obesity (BMI 30.0-34.9) Social History Tobacco Use Types Packs/Day Years Used Date Smoking Tobacco: Never Smokeless Tobacco: Never Alcohol Use Standard Drinks/Week Comments Defer 0 (1 standard drink = 0.6 oz pur e alcohol) Sex and Gender Information Value Date Recorded Sex Assigned at Not on file 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 Gender Identity Not on file Sexual Orientation Not on file Obstetrics History Last Filed Vital Signs Vital Sign Reading [...] 06/18/2021 10:46 PM CDT Plan of Treatment Health Maintenance Due Date Last Done Comments Colon Cancer Screening-Colonoscopy 1978 Depression Screening 1978 Hepatitis C Screening 1978 DTaP/Tdap/Td Vaccine (1 - Tdap) 1989 Hepatitis B Screening 01/15/1996 Regular Well Visit/Exam 18-64 01/15/1996 Influenza Vaccine (Season Ended) 2024 02/16/2021, 12/07/2018 HPV Vaccines Aged Out No longer eligi ble based on patient's age to complete this topic Pneumococcal vaccine <65 Aged Out No longer eligible based on patient's age to complete this topic Procedures Procedure Name Priority Date/Time Associated Diagnosis Comments POC INFLUENZA A/B, COVID-19 ANTIGEN Routine 07/13/2024 11:30 AM CDT Acute cough Dental abscess from Last 3 Months Results * POC Influenza A/B, COVID-19 antigen (07/13/2024 11:30 AM CDT) Influenza A Ag, POC Negative Negative [facility] Influenza B Ag, POC Negative Negative [facility] COVID-19 Ag POC Presumptive Negative Presumptive Negative, Invalid [facility] Nasal 07/13/2024 11:3 0 AM CDT us Zehra Borrero NP POINT OF CARE TEST ORDERAB LES Final Result [facility] [address] [place] [address], [facility] from Last 3 Months Insurance [facility] Care Teams Facilities Maintenance Worker Relationship Specialty Start Date End Date Rosie Sutherland NP [address] [address] PCP - General Family Medicine 07/27/24
--- OUTSIDE RECORDS SUMMARY | 2024-08-31 09:53 | XMS_ITS | Data Portability ---
[facility] Organization [facility] Address [address] [place] [address] Care Team Providers Care Hebrew Teacher Name Role Phone ROSIE SORTO Primary Care Provider Assessment Encounter Date Assessment Date Assessment LastModified by Organization Details LastModified Time 08/06/2023 08/06/2023 Pt sees a dentist and an eye doctor. 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 [email or web address] Not available 08/10/2023 13:09:37 12/16/2023 12/16/2023 Mr. Silvestre is establishing care today and has a history of hypertension. He recently visited the ER at [facility] due to difficulty urinating, where he was started on tamsulosin and advised to follow up with his primary care provider (PCP) and a urologist. The patient also reports hearing difficulties in both ears. He indicates that he wore hearing aids as a child but has not used them since he was 10 years old. Not available 12/27/2023 23:11:16 12/23/2023 12/23/2023 Mr. Silvestre presents for follow up appointment. Not available 01/05/2024 16:30:35 04/19/2024 04/19/2024 Mr. Silvestre presents for a follow-up appointment and reports a fall at work in January 2024, resulting in a left shoulder injury. He is currently under workers' compensation. The patient denies any other concerns aside from persistent left shoulder pain. No additional complaints or new symptoms reported. Not available 04/19/2024 14:24:51 07/23/2024 07/23/2024 Mr. Silvestre presents in office for follow up appointment. Not available 07/23/2024 10:45:54 Plan of Treatment Reminders Order Date Submit Date Provider Last Modified By Organization Details Last Modified Time Details Appointments ANY 30 2024 10:00A M ROSIE SORTO NP Not available Not available Not available Lab lipid panel , serum 2023 024 [facility], [facility], [facility] [address], [place], [address], 12/17/2023 14:14:30 TSH + free T4, serum 2023 024 [facility], [address] [facility], [facility] [address], [place], [address], 12/17/2023 14:14:28 PSA, total , serum or plasm a 2023 024 [facility], [address] [place] [address], [facility] [address], [place], [address], 12/17/2023 14:14:34 vitam in D, 25-hy droxy , total , serum 2023 024 [facility], [address] [place] [address], [facility] [address], [place], [address], 12/17/2023 14:14:35 CMP, serum or plasm a 2023 024 [facility], [facility], [facility] [address], [place], [address], 12/17/2023 14:14:31 CBC w/ auto diff 2023 024 [facility], [address] [facility], [facility] [address], [place], [address], 12/17/2023 14:14:33 CMP, serum or plasm a 2023 024 [facility], [address] [facility], [address], [place], [address], 08/07/2023 09:13:58 CBC w/ auto diff 2023 024 [facility], [address] [facility], [place], [address], 08/07/2023 09:14:00 lipid panel , serum 2023 024 [facility], [address] [facility] [address], [place], [address], 08/07/2023 09:13:57 TSH, ultra -sens itive , serum 2023 024 [facility], [address] [place] [address] 2, [place], [address], 08/07/2023 09:13:59 vitam in D, 25-hy droxy , total , serum 2023 024 [facility], [address] [place] [address] 2, [place], [address], 08/07/2023 09:14:02 Referral gastr eligio alfrod ist refer ral - colon oscop y 2024 025 [facility], [address] [facility] , [facility] [address], [place], [address], 08/26/2024 04:24:53 audio logis t refer ral [address] [facility], [address] [place], [address], 04/27/2024 16:00:21 otola ryngo logis t refer ral 2023 024 [facility]FF[facility] Helms MD, [address] [facility] , [place], [address], 01/15/2024 11:20:42 urolo gist refer ral 2023 024 [email or web address], 2 [facility], [facility] [address], [place], [address], 03/31/2024 11:47:54 Procedures None recor ded. Surgeries None recor ded. Imaging None recor ded. Medication Orders ergoc alcif jose (norma min D2) 1,250 mcg (50,0 00 unit) capsu le [address] [id number], [address] , [place], [place], [id number], 07/23/2024 10:36:44 lisin opril 20 mg table t [address] [facility][id number], [address] , [place], [place], [id number], 07/23/2024 10:38:51 lisin opril 20 mg table t [address] [facility] #[id number], [address] , [place], [place], [id number], 12/16/2023 16:00:37 ergoc alcif jose (norma min D2) 1,250 mcg (50,0 00 unit) capsu le 2023 [id number], [address] [place], [place], [id number], 04/19/2024 12:32:29 lisin opril 20 mg table t [address] [facility] #[id number], [address] , [place], [place], [id number], 12/16/2023 15:31:55 Patient TargetsNo targets recorded. Patient Instructions Encounter Date Encounter Id Patient Instructions Last Modified By Organization Details Last Modified Time 08/06/2023 [id number] When You Want to Lose Weight: Care Instructions [email or web address] Not available 08/10/2023 13:10:32 12/16/2023 [id number] - limit/avoid consumption of processed foods. choose a diet rich in fruits, and vegetables, low fat, low carbs. - Eat less salt (sodium) - exercise for at least 30 minutes a day on most days of the week - Limit the amount of caffeine and alcohol you drink - work on obtaining and maintaining a healthy weight Not available 12/27/2023 23:14:17 - Always present to ER or Urgent Care with any progression of/alarming symptoms, significant changes in symptoms or any concerning or urgent matters Not available 12/16/2023 15:47:35 12/23/2023 [id number] earwax blockage: care instructions Not available 12/23/2023 11:56:26 learning about low-fat eating Not available 12/23/2023 12:00:40 heart-healthy diet: care instructions Not available 12/23/2023 12:00:40 - Always present to ER or Urgent Care with any progression of/alarming symptoms, significant changes in symptoms or any concerning or urgent matters Not available 01/05/2024 16:28:19 04/19/2024 [id number] - Always present to ER or Urgent Care with any progression of/alarming symptoms, significant changes in symptoms or any concerning or urgent matters Not available 04/19/2024 12:39:14 07/23/2024 [id number] - Always present to ER or Urgent Care with any progression of/alarming symptoms, significant changes in symptoms or any concerning or urgent matters Not available 07/23/2024 10:36:47 Reason for Referral Urologist Referral for Incom plete emptying of urinary bladder Referring Physician: Rosie Sorto [facility], Encounter Date: 12/16/2023 Labeling Strategist Referral for Hea ring difficulty Referring Physician: Rosie Sorto [facility], Encounter Date: 12/16/2023 Cable Hooker Referral fo r Hearing difficulty Referring Physician: Rosie Sorto [facility], Encounter Date: 12/16/2023 Manager Talent Acquisition Referral for Screening for malignant neoplasm of colon colonoscopy Referring Physician: Rosie Sorto [facility], Encounter Date: 07/23/2024 Results Created Date Observation Date Name Description Value Unit Range Abnormal Flag Note LastModifiedBy Organization Detail LastModifiedTime 08/06/19 24 08/07/2023 LIPID PANEL cholesterol, total 191 mg/dL 100-19 9 Not Available [facility] ([facility]) [address] [place], [address], 08/07/2023 09:13:57 08/06/19 24 08/07/2023 LIPID PANEL triglyceride s 184 mg/dL 0-149 above high normal Not Available [facility] ([facility]) [address] [place], [address], 08/07/2023 09:13:57 08/06/19 24 08/07/2023 LIPID PANEL HDL cholesterol 47 mg/dL >39 Not Available [facility] ([facility]) [address] [place], [address], 08/07/2023 09:13:57 08/06/19 24 08/07/2023 LIPID PANEL VLDL cholesterol vanda 32 mg/dL 5-40 Not Available [facility] ([facility]) [address] [place], [address], 08/07/2023 09:13:57 08/06/19 24 08/07/2023 LIPID PANEL LDL chol calc ([facility]) 112 mg/dL 0-99 above high normal Not Available [facility] ([facility]) [address] [place], [address], 08/07/2023 09:13:57 08/06/19 24 08/07/2023 COMP. METAB OLIC PANEL (14) glucose 97 mg/dL 70-99 Not Available [facility] ([facility]) [address] [place], [address], 08/07/2023 09:13:58 08/06/19 24 08/07/2023 COMP. METAB OLIC PANEL (14) BUN 14 mg/dL 6-24 Not Available [facility] ([facility]) [address] [facility] [place], [address], 08/07/2023 09:13:58 08/06/19 24 08/07/2023 COMP. METAB OLIC PANEL (14) creatinine 0.69 mg/dL 0.76-1 .27 below low normal Not Available [facility] ([facility]) [address] [facility] [place], [address], 08/07/2023 09:13:58 08/06/19 24 08/07/2023 COMP. METAB OLIC PANEL (14) eGFR 116 mL/mi n/1.7 3 >59 Not Available [facility] ([facility]) [address] [facility] [place], [address], 08/07/2023 09:13:58 08/06/19 24 08/07/2023 COMP. METAB OLIC PANEL (14) BUN/creatini ne ratio 20 9-20 Not Available [facility] ([facility]) [address] [facility] [place], [address], 08/07/2023 09:13:58 08/06/19 24 08/07/2023 COMP. METAB OLIC PANEL (14) sodium 138 mmol/ L 134-14 4 Not Available [facility] ([facility]) [address] [facility] [place], [address], 08/07/2023 09:13:58 08/06/19 24 08/07/2023 COMP. METAB OLIC PANEL (14) potassium 4.2 mmol/ L 3.5-5. 2 Not Available [facility] ([facility]) [address] [facility] [place], [address], 08/07/2023 09:13:58 08/06/19 24 08/07/2023 COMP. METAB OLIC PANEL (14) chloride 99 mmol/ L 96-106 Not Available [facility] ([facility]) [address] [facility] [place], [address], 08/07/2023 09:13:58 08/06/19 24 08/07/2023 COMP. METAB OLIC PANEL (14) carbon dioxide, total 22 mmol/ L 20-29 Not Available [facility] ([facility]) [address] [place], [place], [address], 08/07/2023 09:13:58 08/06/19 24 08/07/2023 COMP. METAB OLIC PANEL (14) calcium 9.3 mg/dL 8.7-10 .2 Not Available [facility] ([facility]) [address] [place], [place], [address], 08/07/2023 09:13:58 08/06/19 24 08/07/2023 COMP. METAB OLIC PANEL (14) protein, total 6.8 g/dL 6.0-8. 5 Not Available [facility] ([facility]) [address] [place], [address], 08/07/2023 09:13:58 08/06/19 24 08/07/2023 COMP. METAB OLIC PANEL (14) albumin 4.3 g/dL 4.1-5. 1 Not Available [facility] ([facility]) [address] [place], [place], [address], 08/07/2023 09:13:58 08/06/19 24 08/07/2023 COMP. METAB OLIC PANEL (14) globulin, total 2.5 g/dL 1.5-4. 5 Not Available [facility] ([facility]) [address] [place], [place], [address], 08/07/2023 09:13:58 08/06/19 24 08/07/2023 COMP. METAB OLIC PANEL (14) A/G ratio 1.7 1.2-2. 2 Not Available [facility] ([facility]) [address] [place], [place], [address], 08/07/2023 09:13:58 08/06/19 24 08/07/2023 COMP. METAB OLIC PANEL (14) bilirubin, total 0.3 mg/dL 0.0-1. 2 Not Available [facility] ([facility]) [address] [facility] [place], [address], 08/07/2023 09:13:58 08/06/19 24 08/07/2023 COMP. METAB OLIC PANEL (14) alkaline phosphatase 73 IU/L 44-121 Not Available [facility] ([facility]) [address] [facility], [place], [address], 08/07/2023 09:13:58 08/06/19 24 08/07/2023 COMP. METAB OLIC PANEL (14) AST (SGOT) 32 IU/L 0-40 Not Available [facility] ([facility]) [address] [facility] [place], [address], 08/07/2023 09:13:58 08/06/19 24 08/07/2023 COMP. METAB OLIC PANEL (14) ALT (SGPT) 51 IU/L 0-44 above high normal Not Available [facility] ([facility]) [address] [place], [address], 08/07/2023 09:13:58 08/06/19 24 08/07/2023 TSH TSH 4.550 uIU/m L 0.450- 4.500 above high normal Not Available [facility] ([facility]) [address] [place], [address], 08/07/2023 09:13:59 08/06/19 24 08/07/2023 CBC WITH DIFFE RENTI AL/PL ATELE T WBC 7.2 x10e3 /uL 3.4-10 .8 Not Available [facility] ([facility]) [address] [place], [address], 08/07/2023 09:14:00 08/06/19 24 08/07/2023 CBC WITH DIFFE RENTI AL/PL ATELE T RBC 5.00 x10e6 /uL 4.14-5 .80 Not Available [facility] ([facility]) [address] [facility], [place], [address], 08/07/2023 09:14:00 08/06/19 24 08/07/2023 CBC WITH DIFFE RENTI AL/PL ATELE T hemoglobin 14.5 g/dL 13.0-1 7.7 Not Available [facility] ([facility]) [address] [facility], [place], [address], 08/07/2023 09:14:00 08/06/19 24 08/07/2023 CBC WITH DIFFE RENTI AL/PL ATELE T hematocrit 43.6 % 37.5-5 1.0 Not Available [facility] ([facility]) [address] [facility], [place], [address], 08/07/2023 09:14:00 08/06/19 24 08/07/2023 CBC WITH DIFFE RENTI AL/PL ATELE T MCV 87 fL 79-97 Not Available [facility] ([facility]) [address] [place], [address], 08/07/2023 09:14:00 08/06/19 24 08/07/2023 CBC WITH DIFFE RENTI AL/PL ATELE T MCH 29.0 pg 26.6-3 3.0 Not Available [facility] ([facility]) [address] [place], [address], 08/07/2023 09:14:00 08/06/19 24 08/07/2023 CBC WITH DIFFE RENTI AL/PL ATELE T MCHC 33.3 g/dL 31.5-3 5.7 Not Available [facility] ([facility]) [address] [place], [address], 08/07/2023 09:14:00 08/06/19 24 08/07/2023 CBC WITH DIFFE RENTI AL/PL ATELE T RDW 13.0 % 11.6-1 5.4 Not Available [facility] ([facility]) [address] [facility], [place], [address], 08/07/2023 09:14:00 08/06/19 24 08/07/2023 CBC WITH DIFFE RENTI AL/PL ATELE T platelets 252 x10e3 /uL 150-45 0 Not Available [facility] ([facility]) [address] [facility], [place], [address], 08/07/2023 09:14:00 08/06/19 24 08/07/2023 CBC WITH DIFFE RENTI AL/PL ATELE T neutrophils 61 % notest ab. Not Available [facility] ([facility]) [address] [facility], [place], [address], 08/07/2023 09:14:00 08/06/19 24 08/07/2023 CBC WITH DIFFE RENTI AL/PL ATELE T lymphs 27 % notest ab. Not Available [facility] ([facility]) [address] [facility], [place], [address], 08/07/2023 09:14:00 08/06/19 24 08/07/2023 CBC WITH DIFFE RENTI AL/PL ATELE T monocytes 9 % notest ab. Not Available [facility] ([facility]) [address] [facility], [place], [address], 08/07/2023 09:14:00 08/06/19 24 08/07/2023 CBC WITH DIFFE RENTI AL/PL ATELE T eos 2 % notest ab. Not Available [facility] ([facility]) [address] [facility], [place], [address], 08/07/2023 09:14:00 08/06/19 24 08/07/2023 CBC WITH DIFFE RENTI AL/PL ATELE T basos 1 % notest ab. Not Available [facility] ([facility]) [address] [facility], [place], [address], 08/07/2023 09:14:00 08/06/19 24 08/07/2023 CBC WITH DIFFE RENTI AL/PL ATELE T neutrophils (absolute) 4.4 x10e3 /uL 1.4-7. 0 Not Available [facility] ([facility]) [address] [facility], [place], [address], 08/07/2023 09:14:00 08/06/19 24 08/07/2023 CBC WITH DIFFE RENTI AL/PL ATELE T lymphs (absolute) 1.9 x10e3 /uL 0.7-3. 1 Not Available [facility] ([facility]) [address] [facility], [place], [address], 08/07/2023 09:14:00 08/06/19 24 08/07/2023 CBC WITH DIFFE RENTI AL/PL ATELE T monocytes(ab solute) 0.7 x10e3 /uL 0.1-0. 9 Not Available [facility] ([facility]) [address] [facility], [place], [address], 08/07/2023 09:14:00 08/06/19 24 08/07/2023 CBC WITH DIFFE RENTI AL/PL ATELE T eos (absolute) 0.1 x10e3 /uL 0.0-0. 4 Not Available [facility] ([facility]) [address] [place], [address], 08/07/2023 09:14:00 08/06/19 24 08/07/2023 CBC WITH DIFFE RENTI AL/PL ATELE T baso (absolute) 0.1 x10e3 /uL 0.0-0. 2 Not Available [facility] ([facility]) [address] [place], [address], 08/07/2023 09:14:00 08/06/19 24 08/07/2023 CBC WITH DIFFE RENTI AL/PL ATELE T immature granulocytes 0 % notest ab. Not Available [facility] ([facility]) [address] [facility], [place], [address], 08/07/2023 09:14:00 08/06/19 24 08/07/2023 CBC WITH DIFFE RENTI AL/PL ATELE T immature grans (abs) 0.0 x10e3 /uL 0.0-0. 1 Not Available [facility] ([facility]) [address] [facility], [place], [address], 08/07/2023 09:14:00 08/06/19 24 08/07/2023 VITAM IN D, 25-HY DROXY vitamin D, 25-hydroxy 34.1 NG/mL 30.0-1 00.0 Vitam in D defic iency has been defin ed by the Insti tute of Medic ine and an Endoc rine Socie ty pract ice guide line as a level of serum 25-OH vitam in D less than 20 ng/mL (1,2) . The Endoc rine Socie ty went on to furth er defin e vitam in D insuf ficie ncy as a level betwe en 21 and 29 ng/mL (2). 1. IOM (Inst itute of Medic ine). 2009. Dieta ry refer ence intak es for calci um and D. Sudhir childs [place]: [facility] . 2. Candie chaney MF, Sae mcdonnell [place], Carina off-F errar i GUILLERMO, et al. Evalu ation , treat ment, and preve ntion of vitam in D defic iency : an Endoc rine Socie ty clini vanda pract ice guide line. JCEM. 2010; 96(7) :1911 -30. Not Available [facility] ([facility]) [address] [facility], [place], [address], 08/07/2023 09:14:01 12/16/19 24 12/17/2023 TSH+F REE T4 TSH 5.450 uIU/m L 0.450- 4.500 above high normal Not Available [facility] ([facility]) [address] [facility] [place], [address], 12/17/2023 14:14:28 12/16/1912/17/2023 TSH+F REE T4 T4,free(dire ct) 1.16 NG/dL 0.82-1 .77 Not Available [facility] ([facility]) [address] [place], [address], 12/17/2023 14:14:28 12/16/1912/17/2023 LIPID PANEL cholesterol, total 206 mg/dL 100-19 9 above high normal Not Available [facility] ([facility]) [address] [place], [address], 12/17/2023 14:14:30 12/16/1912/17/2023 LIPID PANEL triglyceride s 160 mg/dL 0-149 above high normal Not Available [facility] ([facility]) [address] [place], [address], 12/17/2023 14:14:30 12/16/1912/17/2023 LIPID PANEL HDL cholesterol 57 mg/dL >39 Not Available [facility] ([facility]) [address] [place], [address], 12/17/2023 14:14:30 12/16/1912/17/2023 LIPID PANEL VLDL cholesterol vanda 28 mg/dL 5-40 Not Available [facility] ([facility]) [address] [place], [address], 12/17/2023 14:14:30 12/16/1912/17/2023 LIPID PANEL LDL chol calc ([facility]) 121 mg/dL 0-99 above high normal Not Available [facility] ([facility]) [address] [place], [address], 12/17/2023 14:14:30 12/16/19 24 12/17/2023 COMP. METAB OLIC PANEL (14) glucose 103 mg/dL 70-99 above high normal Not Available [facility] ([facility]) [address] [place], [address], 12/17/2023 14:14:31 12/16/19 24 12/17/2023 COMP. METAB OLIC PANEL (14) BUN 11 mg/dL 6-24 Not Available [facility] ([facility]) [address] [place], [address], 12/17/2023 14:14:31 12/16/19 24 12/17/2023 COMP. METAB OLIC PANEL (14) creatinine 0.76 mg/dL 0.76-1 .27 Not Available [facility] ([facility]) [address] [place], [address], 12/17/2023 14:14:31 12/16/19 24 12/17/2023 COMP. METAB OLIC PANEL (14) eGFR 113 mL/mi n/1.7 3 >59 Not Available [facility] ([facility]) [address] [place], [address], 12/17/2023 14:14:31 12/16/19 24 12/17/2023 COMP. METAB OLIC PANEL (14) BUN/creatini ne ratio 14 9-20 Not Available [facility] ([facility]) [address] [place], [address], 12/17/2023 14:14:31 12/16/19 24 12/17/2023 COMP. METAB OLIC PANEL (14) sodium 138 mmol/ L 134-14 4 Not Available [facility] ([facility]) [address] [place], [address], 12/17/2023 14:14:31 12/16/19 24 12/17/2023 COMP. METAB OLIC PANEL (14) potassium 4.2 mmol/ L 3.5-5. 2 Not Available [facility] ([facility]) [address] [place], [address], 12/17/2023 14:14:31 12/16/19 24 12/17/2023 COMP. METAB OLIC PANEL (14) chloride 100 mmol/ L 96-106 Not Available [facility] ([facility]) [address] [place], [address], 12/17/2023 14:14:31 12/16/19 24 12/17/2023 COMP. METAB OLIC PANEL (14) carbon dioxide, total 23 mmol/ L 20-29 Not Available [facility] ([facility]) [address] [place], [address], 12/17/2023 14:14:31 12/16/19 24 12/17/2023 COMP. METAB OLIC PANEL (14) calcium 9.8 mg/dL 8.7-10 .2 Not Available [facility] ([facility]) [address] [place], [address], 12/17/2023 14:14:31 12/16/19 24 12/17/2023 COMP. METAB OLIC PANEL (14) protein, total 7.2 g/dL 6.0-8. 5 Not Available [facility] ([facility] [address] [facility] [place], [address], 12/17/2023 14:14:31 12/16/19 24 12/17/2023 COMP. METAB OLIC PANEL (14) albumin 4.6 g/dL 4.1-5. 1 Not Available [facility] ([facility] [address] [facility] [place], [address], 12/17/2023 14:14:31 12/16/19 24 12/17/2023 COMP. METAB OLIC PANEL (14) globulin, total 2.6 g/dL 1.5-4. 5 Not Available [facility] ([facility]) [address] [facility], [place], [address], 12/17/2023 14:14:31 12/16/19 24 12/17/2023 COMP. METAB OLIC PANEL (14) bilirubin, total 0.3 mg/dL 0.0-1. 2 Not Available [facility] ([facility]) [address] [facility], [place], [address], 12/17/2023 14:14:31 12/16/19 24 12/17/2023 COMP. METAB OLIC PANEL (14) alkaline phosphatase 74 IU/L 44-121 Not Available [facility] ([facility]) [address] [facility], [place], [address], 12/17/2023 14:14:31 12/16/19 24 12/17/2023 COMP. METAB OLIC PANEL (14) AST (SGOT) 25 IU/L 0-40 Not Available [facility] ([facility]) [address] [facility], [place], [address], 12/17/2023 14:14:31 12/16/19 24 12/17/2023 COMP. METAB OLIC PANEL (14) ALT (SGPT) 41 IU/L 0-44 Not Available [facility] ([facility]) [address] [facility], [place], [address], 12/17/2023 14:14:31 12/16/19 24 12/17/2023 CBC WITH DIFFE RENTI AL/PL ATELE T WBC 5.7 x10e3 /uL 3.4-10 .8 Not Available [facility] ([facility]) [address] [facility] [place], [address], 12/17/2023 14:14:32 12/16/19 24 12/17/2023 CBC WITH DIFFE RENTI AL/PL ATELE T RBC 5.03 x10e6 /uL 4.14-5 .80 Not Available [facility] [facility]) [address] [place], [address], 12/17/2023 14:14:32 12/16/1912/17/2023 CBC WITH DIFFE RENTI AL/PL ATELE T hemoglobin 15.1 g/dL 13.0-1 7.7 Not Available [facility] ([facility]) [address] [facility], [place], [address], 12/17/2023 14:14:32 12/16/1912/17/2023 CBC WITH DIFFE RENTI AL/PL ATELE T hematocrit 44.3 % 37.5-5 1.0 Not Available [facility] ([facility]) [address] [facility], [place], [address], 12/17/2023 14:14:32 12/16/1912/17/2023 CBC WITH DIFFE RENTI AL/PL ATELE T MCV 88 fL 79-97 Not Available [facility] ([facility]) [address] [facility], [place], [address], 12/17/2023 14:14:32 12/16/1912/17/2023 CBC WITH DIFFE RENTI AL/PL ATELE T MCH 30.0 pg 26.6-3 3.0 Not Available [facility] ([facility]) [address] [place], [address], 12/17/2023 14:14:32 12/16/1912/17/2023 CBC WITH DIFFE RENTI AL/PL ATELE T MCHC 34.1 g/dL 31.5-3 5.7 Not Available [facility] ([facility]) [address] [place], [address], 12/17/2023 14:14:32 12/16/1912/17/2023 CBC WITH DIFFE RENTI AL/PL ATELE T RDW 12.8 % 11.6-1 5.4 Not Available [facility] ([facility]) [address] [place], [address], 12/17/2023 14:14:32 12/16/19 24 12/17/2023 CBC WITH DIFFE RENTI AL/PL ATELE T platelets 252 x10e3 /uL 150-45 0 Not Available [facility] ([facility]) [address] [facility], [place], [address], 12/17/2023 14:14:32 12/16/1912/17/2023 CBC WITH DIFFE RENTI AL/PL ATELE T neutrophils 52 % notest ab. Not Available [facility] ([facility]) [address] [facility], [place], [address], 12/17/2023 14:14:32 12/16/1912/17/2023 CBC WITH DIFFE RENTI AL/PL ATELE T lymphs 31 % notest ab. Not Available [facility] ([facility]) [address] [facility], [place], [address], 12/17/2023 14:14:32 12/16/19 24 12/17/2023 CBC WITH DIFFE RENTI AL/PL ATELE T monocytes 10 % notest ab. Not Available [facility] ([facility]) [address] [facility], [place], [address], 12/17/2023 14:14:32 12/16/1912/17/2023 CBC WITH DIFFE RENTI AL/PL ATELE T eos 5 % notest ab. Not Available [facility] ([facility]) [address] [facility], [place], [address], 12/17/2023 14:14:32 12/16/1912/17/2023 CBC WITH DIFFE RENTI AL/PL ATELE T basos 2 % notest ab. Not Available [facility] ([facility]) [address] [facility], [place], [address], 12/17/2023 14:14:32 12/16/1912/17/2023 CBC WITH DIFFE RENTI AL/PL ATELE T neutrophils (absolute) 2.9 x10e3 /uL 1.4-7. 0 Not Available [facility] ([facility]) [address] [facility], [place], [address], 12/17/2023 14:14:32 12/16/19 24 12/17/2023 CBC WITH DIFFE RENTI AL/PL ATELE T lymphs (absolute) 1.8 x10e3 /uL 0.7-3. 1 Not Available [facility] ([facility]) [address] [facility], [place], [address], 12/17/2023 14:14:32 12/16/1912/17/2023 CBC WITH DIFFE RENTI AL/PL ATELE T monocytes(ab solute) 0.6 x10e3 /uL 0.1-0. 9 Not Available [facility] ([facility]) [address] [facility], [place], [address], 12/17/2023 14:14:32 12/16/19 24 12/17/2023 CBC WITH DIFFE RENTI AL/PL ATELE T eos (absolute) 0.3 x10e3 /uL 0.0-0. 4 Not Available [facility] ([facility]) [address] [facility], [place], [address], 12/17/2023 14:14:32 12/16/19 24 12/17/2023 CBC WITH DIFFE RENTI AL/PL ATELE T baso (absolute) 0.1 x10e3 /uL 0.0-0. 2 Not Available [facility] ([facility]) [address] [place], [address], 12/17/2023 14:14:32 12/16/19 24 12/17/2023 CBC WITH DIFFE RENTI AL/PL ATELE T immature granulocytes 0 % notest ab. Not Available [facility] ([facility]) [address] [place], [address], 12/17/2023 14:14:32 12/16/19 24 12/17/2023 CBC WITH DIFFE RENTI AL/PL ATELE T immature grans (abs) 0.0 x10e3 /uL 0.0-0. 1 Not Available [facility] ([facility]) [address] [facility], [place], [address], 12/17/2023 14:14:32 12/16/19 24 12/17/2023 PROST ATE-S PECIF IC AG prostate specific Ag 0.9 NG/mL 0.0-4. 0 John ECLIA metho dolog y. Accor ding to the Ameri can Urolo gical Assoc iatio n, Serum PSA shoul d decre ase and remai n at undet ectab le level s after radic al prost atect dustin. The AUA defin es bioch emica l recur rence as an initi al PSA value 0.2 ng/mL or great er follo wed by a subse quent confi rmato ry PSA value 0.2 ng/mL or great er. Value s obtai idalia with diffe rent assay metho ds or kits canno t be used inter sullivan eably . Resul ts canno t be inter prete d as absol romain evide nce of the prese nce or absen ce of shahram hinojosa disea se. Not Available [facility] ([facility]) [address] [facility], [place], [address], 12/17/2023 14:14:34 12/16/19 24 12/17/2023 VITAM IN D, 25-HY DROXY vitamin D, 25-hydroxy 46.5 NG/mL 30.0-1 00.0 Vitam in D defic iency has been defin ed by the Insti tute of Medic ine and an Endoc rine Socie ty pract ice guide line as a level of serum 25-OH vitam in D less than 20 ng/mL (1,2) . The Endoc rine Socie ty went on to furth er defin e vitam in D insuf ficie ncy as a level betwe en 21 and 29 ng/mL (2). 1. IOM (Inst itute of Medic ine). 2010. Dieta ry refer ence intak es for calci um and D. Sudhir childs [place]: The [facility] . 2. Candie chaney MF, Sae mcdonnell [place], Carina off-F thea i GUILLERMO, et al. Evalu ation , treat ment, and preve ntion of vitam in D defic iency : an Endoc rine Socie ty clini vanda pract ice guide line. JCEM. 2010; 96(7) :1911 -30. Not Available [facility] ([facility]) [address] [facility], [place], [address], 12/17/2023 14:14:35 07/14/19 25 07/13/2024 SARS- CoV+S ARS-C oV-2 (COVI D-19) Ag [Pres ence] in Respi rator y syste m speci men by Rapid immun oassa y influenza A Ag, POC Negati ve text: negati ve Influ viola A Ag, POC Negat neli Negat neli [facility] Not Available Not Available 07/23/2024 02:58:20 07/14/19 25 07/13/2024 SARS- CoV+S ARS-C oV-2 (COVI D-19) Ag [Pres ence] in Respi rator y syste m speci men by Rapid immun oassa y influenza B Ag, POC Negati ve text: negati ve Influ viola B Ag, POC Negat neli Negat neli [facility] Not Available Not Available 07/23/2024 02:58:20 07/14/19 25 07/13/2024 SARS- CoV+S ARS-C oV-2 (COVI D-19) Ag [Pres ence] in Respi rator y syste m speci men by Rapid immun oassa y covid-19 Ag POC Presum ptive Negati ve text: presum ptive negati ve, invali d COVID -19 Ag POC Presu mptiv e Negat neli Presu mptiv e Negat neli, Inval id [facility] Not Available Not Available 07/23/2024 02:58:20 07/14/19 25 07/13/2024 SARS- CoV+S ARS-C oV-2 (COVI D-19) Ag [Pres ence] in Respi rator y syste m speci men by Rapid immun oassa y interpretati on and review of laboratory results Normal Not Available Not Available 07/02 02:58:20 01/17/20 24 01/16/2024 XR, humer us, 2 or more view No observ ation record ed. [facility] [address], [place], [address], 01/21/2024 22:44:53 Result Notes None recorded. Problems Name Problem SNOMED Code Status Onset Date Resolution Date Notes Provider Name and Address Organization Details Recorded Time Essential 247 [employer] n 87530327 Active 2018 ROSIE SORTO NP Attn: Huyen echeverria,[address] [place], [address], [facility] - [facility] 4 15:45:22 Pain of left shoulder joint 8856336800993 9109 Active 2018 Hi stark, [place] - [facility] 9 16:06:22 Pain of shoulder region 84604001 Active 2018 Hi stark, [place] - [facility] 9 10:30:12 Hyperlipide manny 82229889 Active 2023 ROSIE SORTO NP Attn: Huyen echeverria,[address] [facility], [place], [address], [facility] - [facility] 4 23:01:24 Injury of left shoulder 1993826295442 9100 Active 2024 ROSIE SORTO NP Attn: Huyen echeverria,[address] [place], [address], [place] - [facility] 5 14:34:08 Problem Notes None recorded. Procedures Surgical History Date Name Laterality Status Provider Name and Address Organization Details Recorded Time Other completed Alexus Rondon MA [place] - [facility] 06/23/2017 15:27:02 procedure on eustachian tube completed Sosa Garcia MA [place] - [facility] 01/21/2022 09:53:05 Imaging Results None recorded. Procedure Notes None recorded. Medical Equipment None Reported. Allergies Allergen ID Allergen Name Allergen Category Reaction Reaction Severity Criticality Documentation Date Start Date Code Code System Note Provider Name and Address Organization Details Recorded Time 049441 tramadol medicatio n Not available Not available Not available 04/19/20242012 72807 RxNorm ROSIE SORTO NP Attn: Huyen echeverria,[address] [facility], [place], [address], [facility] - SI 12:36:30 Medications Name Sig Start Date Stop Date Status Note LastModified by Organization Details LastModified Time cyclobenzap rine 10 mg tablet TAKE 1 TABLET BY MOUTH EVERY DAY AT BEDTIME FOR 15 DAYS 08/05 completed Not Available Not Available Not Available amoxicillin 500 mg capsule 12/07 completed Not Available Not Available Not Available albuterol sulfate 2.5 mg/3 mL (0.083 %) solution for nebulizatio n USE 3 ML VIA NEBULIZER EVERY 6 HOURS NEEDED FOR WHEEZING 01/21 completed Not Available Not Available Not Available azithromyci n 250 mg tablet 06/23 completed Not Available Not Available Not Available ibuprofen 800 mg tablet 12/07 completed Not Available Not Available Not Available benzonatate 200 mg capsule TAKE 1 CAPSULE BY MOUTH EVERY 8 HOURS NEEDED FOR COUGH 08/05 completed Not Available Not Available Not Available meloxicam 15 mg tablet Take 1 tablet every day by oral route. 12/07 completed Not Available Not Available Not Available lisinopril 20 mg tablet TAKE 1 TABLET BY MOUTH EVERY DAY active Not Available Not Available No t Available ondansetron HCl 4 mg tablet TAKE 1 TABLET BY MOUTH EVERY 8 HOURS NEEDED FOR NAUSEA 12/15 completed Not Available Not Available Not Available prednisone 20 mg tablet TAKE 1 TABLET BY MOUTH TWICE DAILY FOR 5 DAYS 01/21 completed Not Available Not Available Not Available acetaminoph en 300 mg-codeine 30 mg tablet 12/07 completed Not Available Not Available Not Available meloxicam 7.5 mg tablet TAKE 1 TABLET BY MOUTH DAILY active Not Available Not Available No t Available ofloxacin 0.3 % ear drops INSTILL 10 DROPPERFU L TO RIGHT EAR DAILY FOR 7 DAYS active Not Available Not Available No t Available tamsulosin 0.4 mg capsule TAKE 1 CAPSULE BY MOUTH DAILY 04/19 completed Not Available Not Available Not Available naproxen sodium 550 mg tablet 07/02 completed Not Available Not Available Not Available lisinopril 10 mg tablet Take 1 tablet every day by oral route for 90 days. 02/01 completed Not Available Not Available Not Available diclofenac potassium 50 mg tablet 12/07 completed Not Available Not Available Not Available codeine 10 mg-guaifene sin 100 mg/5 mL oral liquid TAKE 10 ML BY MOUTH FOUR TIMES DAILY NEEDED 08/05 completed Not Available Not Available Not Available ergocalcife rol (vitamin D2) 1,250 mcg (50,000 unit) capsule TAKE 1 CAPSULE BY MOUTH EVERY WEEK active Not Available Not Available No t Available ibuprofen 600 mg tablet TAKE 1 TABLET BY MOUTH THREE TIMES DAILY 04/19 completed Not Available Not Available Not Available albuterol sulfate HFA 90 mcg/actuati on aerosol inhaler INHALE 2 PUFFS EVERY 4 TO 6 HOURS NEEDED 12/15 completed Not Available Not Available Not Available naproxen 500 mg tablet TAKE 1 TABLET BY MOUTH TWICE DAILY NEEDED FOR 15 DAYS 01/21 completed Not Available Not Available Not Available amoxicillin 875 mg-potassiu m clavulanate 125 mg tablet TAKE 1 TABLET BY MOUTH TWICE DAILY FOR 10 DAYS active Not Available Not Available No t Available azithromyci n 500 mg tablet 12/07 completed Not Available Not Available Not Available cyclobenzap rine 5 mg tablet TAKE 1 TABLET BY MOUTH EVERY 8 HOURS NEEDED FOR PAIN active Not Available Not Available No t Available Vitals Date Recorded Body height Respiratory rate Body mass index (BMI) Body weight Body temperature Heart rate Oxygen saturation Oxygen saturation in Arterial blood by Pulse oximetry Systolic blood pressure Diastolic blood pressure Provider Name and Address Organization Details Last Updated DateTime 147.32 cm 16 /min 39.5 kg/m2 37146.3 1 g 96.6 [degF] 84 /min 96 % 96 % 114 mm[Hg] 76 mm[Hg] Tonya [place] MA [facility] 5 12:34:59 Date Recorded Body height Body mass index (BMI) Body weight Body temperature Respiratory rate Heart rate Oxygen saturation Oxygen saturation in Arterial blood by Pulse oximetry Systolic blood pressure Diastolic blood pressure Provider Name and Address Organization Details Last Updated DateTime 5 147.32 cm 38.9 kg/m2 87788.2 6 g 97.1 [degF] 16 /min 82 /min 94 % 94 % 122 mm[Hg] 83 mm[Hg] Kailyn Jeffers MA [facility] 5 10:28:14 Date Recorded Body weight Body mass index (BMI) Body height Oxygen saturation Oxygen saturation in Arterial blood by Pulse oximetry Heart rate Respiratory rate Body temperature Systolic blood pressure Diastolic blood pressure Provider Name and Address Organization Details Last Updated DateTime 4 73611.6 g 37.1 kg/m2 147.32 cm 97 % 97 % 108 /min 16 /min 97.7 [degF] 112 mm[Hg] 79 mm[Hg] Sosa Garcia MA [facility] 4 14:05:09 Date Recorded Body height Respiratory rate Body mass index (BMI) Body weight Body temperature Heart rate Oxygen saturation Oxygen saturation in Arterial blood by Pulse oximetry Systolic blood pressure Diastolic blood pressure Provider Name and Address Organization Details Last Updated DateTime 4 147.32 cm 16 /min 35.8 kg/m2 66196 g 96.9 [degF] 91 /min 97 % 97 % 114 mm[Hg] 70 mm[Hg] Tonya [place] MA [facility] 4 15:37:42 Date Recorded Body height Body mass index (BMI) Body weight Oxygen saturation Oxygen saturation in Arterial blood by Pulse oximetry Heart rate Respiratory rate Body temperature Systolic blood pressure Diastolic blood pressure Provider Name and Address Organization Details Last Updated DateTime 4 147.32 cm 35.8 kg/m2 01692.7 5 g 96 % 96 % 89 /min 16 /min 96.8 [degF] 112 mm[Hg] 70 mm[Hg] Enriqueta Corrigan LPN [facility] 4 11:46:17 Social History Question Answer Notes LastModified by Organizat ion Details LastModified Time Tobacco Smoking Status Former Smoker Quit about 15 years ago Sosa Garcia MA [facility], [place] - [facility] 09/12/2020 13:44:28 Do You Have An Advance Directive? No Information not available 09/12/2020 Are You Blind Or Do You Have Difficulty Seeing? Yes Glasses Information not available 09/12/2020 What Is Your Level Of Caffeine Consumption? Moderate 2 Cups Of Coffee A Day Information not available 09/12/2020 In The 14 Days Before Symptom Onset, Have You Had Close Contact With A Laboratory-confir med COVID-19 While That Case Was Ill? No Information not available 09/12/2020 In The 14 Days Before Symptom Onset, Have You Had Close Contact With A Person Who Is Under Investigation For COVID-19 While That Person Was Ill? No Information not available 09/12/2020 Have You Been To An Area Known To Be High Risk For COVID-19? No Information not available 09/12/2020 Are You Deaf Or Do You Have Serious Difficulty Hearing? Yes Had Hearing Aides When He Was Younger Information not available 09/12/2020 What Type Of Diet Are You Following? REGULAR Information not available 09/12/2020 Are There Any Guns Present In Your Home? No Information not available 09/12/2020 What Was The Date Of Your Most Recent Tobacco Screening? 07/23/2024 Information not available 07/23/2024 How Many Children Do You Have? 0 Information not available 09/12/2020 What Is Your Relationship Status? Single Information not available 09/12/2020 Do You Use Your Seat Belt Or Car Seat Routinely? Yes Information not available 09/12/2020 Are You Sexually Active? No Information not available 09/12/2020 Do You Have Smoke And Carbon Monoxide Detectors In Your Home? Yes Information not available 09/12/2020 At What Age Did You Start Smoking Tobacco? 16 Information not available 09/12/2020 Are You Passively Exposed To Smoke? No Information no t available 09/12/2020 Do You Use Sunscreen Routinely? Yes Sometimes Information not available 09/12/2020 Has Tobacco Cessation Counseling Been Provided? No Information not available 01/21/2022 On What Date Was Tobacco Cessation Counseling Provided? 07/23/2024 Information not available 07/23/2024 How Many Years Have You Smoked Tobacco? 11 Information not available 01/21/2022 Sex: Male Functional Status Question Answer Note LastModified by Organizat ion Details LastModified Time Do you use any illicit or recreational drugs? No Information not available 09/12/2020 Do you or have you ever used any other forms of tobacco or nicotine? No Information not available 09/12/2020 What is your level of alcohol consumption? None Information not available 09/12/2020 Are you currently employed? Yes Information not available 09/12/2020 Are you able to care for yourself? 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 Moderate goes to gym Information not available 09/12/2020 Mental Status Question Answer Note LastModified by Organization D etails LastModified Time Do you feel stressed (tense, restless, nervous, or anxious, or unable to sleep at night)? [id number] Information not available 09/12/2020 Family History Relationship Description Onset Age of this Age Resolved Age Notes LastModified by Organization Details LastModified Time Father No current problems or disability [email or web address] Not available 06/23 15:26:11 Mother No current problems or disability [email or web address] Not available 06/23 15:26:11 Notes:no changes reported , 01/21/22, 08/06/23 Medical History No medical history recorded. Immunizations Vaccine Type Date Status Note Provider Nam e and Address Organization Details Recorded Time Influenza, split virus, quadrivalent, preservative 9 completed Not Available [facility] 03/20/2019 02:38:12 Influenza, split virus, quadrivalent, PF 1 completed HERBERT [place] - [facility] 02/16/2021 18:24:54 Influenza, split virus, quadrivalent, PF 2 completed Luis Garces MD Attn: Accounting[address] [place], [address], [facility] - [facility] 01/22/2022 07:13:01 Influenza, split virus, trivalent, PF 4 completed ROSIE SORTO NP Attn: Account[address] [facility], [place], [address], [facility] - [facility] 01/05/2024 16:26:12 Past Encounters Encounter ID Performer Location Encounter Start Date Encounter Closed Date Diagnosis/Indication Diagnosis SNOMED-CT Code Diagnosis ICD10 Code Diagnosis Note [id number] Hi Zendejas [facility] [address] [place] [address] 06/23/2017 14:55:57 06/23/2017 17:21:02 Adult health examination 238715985 Z00.00 Pain of le ft shoulder joint 6003959717 0512753 M25.833 [id number] MD Piyush Jara [address] [facility] [place] [address] 05/21/2018 15:39:59 05/22/2018 12:30:22 Essential hypertension 99546258 I10 Pain of le ft shoulder joint 6987709509 1678809 M25.512 Adult [facility] examination 251093049 Z00.00 [id number] MD Piyush Jara 14 IM [address] [facility] [place] [address] 06/08/2018 11:44:33 06/09/2018 10:06:10 Essential hypertension 54938777 I10 [id number] MD Piyush Jara 14 IM [address] [facility] [place] [address] 12/07/2018 10:11:48 12/08/2018 10:52:43 Essential hypertension 57144697 I10 Pain of [facility] 14733247 M25.519 Administra tion of influenza vaccine 88794463 Z23 [id number] MD Piyush Jara 14 IM [address] [facility] [place] [address] 01/04/2019 15:19:16 01/05/2019 11:00:09 Essential hypertension 74977663 I10 Pain of [facility] 77022840 M25.760 [id number] Hi Zendejas, ANP- Piyush 14 IM [address] [facility] [place] [address] 10/06/2019 10:51:12 10/07/2019 18:02:55 Essential hypertension 76011287 I10 Adult heal th examination 093196017 Z00.00 Screening for malignant neoplasm of prostate 733727211 Z12.5 [id number] MD Piysuh Jara 14 IM [address] [facility] [place] [address] 09/12/2020 12:10:45 09/13/2020 14:29:44 Obesity 499573312 E66.9 Essential hypertension 69462032 I10 [id number] MD Piyush Jara 14 IM [address] [facility] [place] [address] 02/16/2021 13:52:16 02/20/2021 12:54:13 Essential hypertension 64431598 I10 Influenza immunization advised 550223517 Z71.89 Obesity 309373380 E66.9 [id number] MD Piyush Jara [address] [facility] [place] [address] 07/02/2021 16:15:43 07/04/2021 15:00:20 History of fall 207862444 Z91.81 [id number] MD Piyush Jara 14 IM [address] [facility] [place] [address] 01/21/2022 09:42:14 01/22/2022 13:13:01 Obesity 632127582 E66.9 Influenza immunization advised 235327018 Z71.89 History of bronchitis 27 1366877 Z87.09 pt is getting better Essential hypertension 26973788 I10 Cough 99983472 R05.9 [id number] MD Piyush Jara 14 IM [address] [facility] [place] [address] 08/06/2023 13:49:01 08/11/2023 13:57:38 Essential hypertension 60004069 I10 Vitamin D deficiency 347 69469 E55.9 Screening for malignant neoplasm of colon 458869551 Z12.11 pt is at average risk Obesity 358577761 E66.9 [id number] Luis Garces MD [facility] [address] [address] 5 12/16/2023 15:07:29 01/01/2024 13:35:22 Essential hypertension 19310291 I10 - b/p in office today 114/70- Doing well on current treatment. - Continue medication as prescribed and diet/exerc ise as previously discussed. - Take occasional BP s , call if consistent ly >140/90.- Discussed reasons for sooner f/u than 6 months.- Patient verbalizes understand ing. Vitamin D deficiency 347 98149 E55.9 Serum thyr oid stimulating hormone level outside reference range 158698846 R89.1 Incomplete emptying of urinary bladder 182712572 R39.14 Recently evaluated in the ER for difficulty urinating; started on tamsulosin . Hearing difficulty 59621 0000 H91.93 Reports bilateral hearing difficulti es; history of wearing hearing aids until age 10. Hyperlipid emia screening 634582814 Z13.646 [id number] Luis Garces MD [facility] [address] [place] [address] 5 12/23/2023 11:31:02 01/06/2024 10:13:32 Administration of influenza vaccine 27646340 Z23 - recommende d annual influenza vaccinatio n Impacted c erumen of bilateral ears 3408798166 427700 H61.23 - Bilateral EAC were irrigated with warm water until cerumen removed and TMs visualized with normal landmarks. - Pt tolerated procedure well. Hyperlipidemia 27125709 E78.5 [id number] Luis Garces MD [facility] [address] [address] 04/19/2024 12:15:41 04/20/2024 16:12:11 Essential hypertension 15873879 I10 - b/p in office today 114/76- Doing well on current treatment. - Continue medication as prescribed and diet/exerc ise as previously discussed. - Take occasional BP s , call if consistent ly >140/90.- Discussed reasons for sooner f/u than 6 months.- Patient verbalizes understand ing. Injury of left shoulder 4056634521 5942599 S49.92XA Left shoulder injury (Work-rela angella, January 2024) As per the patient, an MRI of the left shoulder has been obtained through workers' compensati on.The patient will start 6 weeks of physical therapy through workers' compensati on as planned.Co ntinue current modified work restrictio ns through workers' compensati onContinue meloxicam as prescribed for pain and inflammati on management . [id number] Luis Garces MD [facility] [address] [place] [address] 07/23/2024 10:16:21 07/23/2024 11:58:11 Essential hypertension [id number] I10 - b/p in office today 122/83- Continue medication as prescribed and diet/exerc ise as previously discussed. - Take occasional BP s , call if consistent ly >140/90.- Discussed reasons for sooner f/u than 6 months.- Patient verbalizes understand ing. Vitamin D deficiency [id number] E55.9 Screening for malignant neoplasm of colon [id number] Z12.11 Health Concerns Section Related Observation LastModified by Organization Detai ls LastModified Time None Recorded Concern Status LastModified by Organization Details LastModified Time None Recorded Advance Directives Directive N: Payers Insurance Date Sequence Insurance Name Policy Number Policy Franks Covered Member ID Franks Member ID Guarantor Name 07/20/2024 1 [facility] [id number] Charles Konrad [id number] Charles Konrad 05/12/2024 3 *SELF PAY* Ro dney Konrad 07/23/2024 1 [facility] (MEDICAID HMO) [id number] Charles Konrad [id number] Charles Konrad 12/16/2023 SLIDING FEE SCHEDULE - DISCOUNT Charles Konrad 04/19/2024 1 *SELF PAY* Ro dney Konrad 12/23/2023 SLIDING FEE SCHEDULE - DISCOUNT Charles Konrad 05/12/2024 2 [facility] (MEDICAID HMO) [id number] 03 Chalres Konrad [id number] Charles Konrad 07/22/2024 2 [place] Charles Konrad [id number] Charles Silvestre 08/06/2023 1 [facility] (MEDICAID HMO) [id number] Charles Silvestre [id number] Charles Silvestre Notes Date Note Type Note Provider Name and Address Organization Details Recorded Time 08/06/19 24 text/htm l Pt presents for a regular checkup. Luis Garces MD Attn: [facility],[address] [place] [address], [id number], [facility] [place] 08/10/2023 13:11:26 12/16/19 24 text/htm l Mr. Silvestre is establishing care today and has a history of hypertension. He recently visited the ER at [facility] due to difficulty urinating, where he was started on tamsulosin and advised to follow up with his primary care provider (PCP) and a urologist. The patient also reports hearing difficulties in both ears. He indicates that he wore hearing aids as a child but has not used them since he was 10 years old. ROSIE SORTO NP Attn: [facility]ing,[address] [facility], [place], [address], [facility] 12/27/2023 23:16:29 12/23/19 24 text/htm l Mr. Silvestre presents for follow up appointment. ROSIE SORTO NP Attn: [facility],[address] [place] [address], [place], [address], [facility] 01/05/2024 16:31:20 04/19/19 25 text/htm l Hypertension F/UReported bypatient.Associated Symptoms:no dizziness; no lightheadedness; no chest pain; no shortness of breath; no palpitations; no edema Medications:taking medications as directed; no side effects from medicationShoulderReported bypatient.Location:left Severity:moderate Duration:4 months; continuous since onset Context:work injury Alleviating Factors:nothing helps Associated Symptoms:tingling;swelling Prior Imaging:MRI Previous Injections:helped a little Previous PT:helped a little Work Related:yes Working:modified duty Mr. Silvestre presents for a follow-up appointment and reports a fall at work in January 2024, resulting in a left shoulder injury. He is currently under workers' compensation. The patient denies any other concerns aside from persistent left shoulder pain. No additional complaints or new symptoms reported. ROSIE SORTO NP Attn: [facility]ing,[address] [facility], [place], [address], [facility] 04/19/2024 14:34:47 07/24/19 25 text/htm l Hypertension F/UReported bypatient.Associated Symptoms:no dizziness; no lightheadedness; no chest pain; no shortness of breath; no palpitations; no edema Medications:taking medications as directed; no side effects from medication Mr. Silvestre presents in office for follow up appointment. ROSIE SORTO NP Attn: Accounting,[address] [facility], [place], [address], [facility] 07/23/2024 10:46:40
[2024-08-31 09:55] VITALS: BP 124/74; PULSE 81; RESP 18; TEMP 36.9; O2SAT 98
--- NOTE | 2024-08-31 10:48 | ED_ITS ---
HPI - General Adult General Chief complaint: Dental/Oral Stated complaint: Mouth / Jaw Swelling Source: patient Mode of arrival: ambulatory Limitations: no limitations History of Present Illness HPI narrative: Patient presents for evaluation of facial swelling and dental pain for the last 3 days. He is not provide me with a descriptive quality or numerical rating to the pain. He states he was seen at urgent care about a month ago. He was given oral abx but he only took half the course. His symptoms improved, but he had recurrence of his symptoms in the last few days. He denies any fever, chills, nausea, vomiting, diarrhea. He also reports thick green drainage from the nares for the last month. He tried taking mdlf-saf-wecqucc DayQuil without improvement. He is planning on following up with his dentist. Related Data Home Medications ?Medication ?Instructions ?Recorded ?Confirmed ?Last Taken ?Type ergocalciferol (vitamin D2) 1,250 1,250 mcg PO DAILY 01/06/24 01/06/24 Unknown History mcg (50,000 unit) capsule lisinopril 20 mg tablet 20 mg PO DAILY 01/06/24 01/06/24 Unknown History Allergies Allergy/AdvReac Type Severity Reaction Status Date / Time No Known Allergies Allergy Verified 08/31/24 10:05 Review of Systems Review of Systems: CONSTITUTIONAL: Denies fever, chills, or sweats. EYES: Denies visual changes, redness, or discharge. ENT: Reports dental pain and facial swelling. Reports thick green drainage from the nares. CARDIOVASCULAR: Denies chest pain, palpitations, or edema. RESPIRATORY: Denies cough or dyspnea. GASTROINTESTINAL: Denies abdominal pain, nausea, vomiting, or diarrhea. GENITOURINARY: Denies dysuria or hematuria. SKIN: Denies rash or itching. MUSCULOSKELETAL: Denies back pain, joint pain, or myalgia. NEUROLOGIC: Denies headache, numbness, dizziness, or weakness. PSYCHIATRIC: Denies anxiety or depression. [facility] Past Medical History Medical History No significant past medical history Surgical History Surgical History H/O wrist surgery Family History Family History Mother Family history non-contributory Social History Social History Smoking status: Never smoker Alcohol intake: never Substance use: never Gender identity (if verbalized by the patient): Male Exam Narrative: GENERAL: Well-appearing, well-nourished, and in no acute distress. HEAD: Normocephalic, atraumatic. EYES: PERRLA and EOMI. ENT: Nares clear, no rhinorrhea or epistaxis. Mucous membranes moist. There are many absent teeth. There are several broken teeth. There is a palpable area of swelling in the gumline on the upper left side which is tender to palpation. Bilateral TMs pearly hernandez nonbulging NECK: Supple. No adenopathy or masses. No carotid bruits or JVD CHEST: Clear to auscultation. No respiratory distress. No wheezes rales or rhonchi HEART: Regular rate and rhythm. No murmur heard. Normal peripheral pulses. ABDOMEN: Soft, nontender, nondistended, normal active bowel sounds. EXTREMITIES: Normal range of motion. No edema. SKIN: Warm, dry, no rash. NEURO: No focal deficits. Alert and oriented x3. PSYCH: Normal mood and affect. Course Course Emergency Course: This is a 44-year-old male who presented for evaluation of dental pain and sinus symptoms. Will treat with Augmentin. This will also cover him for sinusitis is he is mucopurulent discharge from his nares. He is instructed to complete this entire antibiotic courses he did not complete the previous one. He should follow-up with his dentist. He should go to the emergency department for worsening symptoms. Patient in agreement with plan of care. Level of Care: Express Care Visit Vital Signs Vital signs: Vital Signs Temperature 36.9 C 08/31/24 09:55 Pulse Rate 81 08/31/24 09:55 Respiratory Rate 18 08/31/24 09:55 Blood Pressure 124/74 08/31/24 09:55 Pulse Oximetry 98 08/31/24 09:55 Oxygen Delivery Room Air 08/31/24 09:55 Temperature 36.9 C 08/31/24 09:55 Pulse Rate 81 08/31/24 09:55 Respiratory Rate 18 08/31/24 09:55 Blood Pressure 124/74 08/31/24 09:55 Pulse Oximetry 98 08/31/24 09:55 Oxygen Delivery Room Air 08/31/24 09:55 Medical Decision Making Vital Signs Vital Signs: Vital Signs Temperature 36.9 C 08/31/24 09:55 Pulse Rate 81 08/31/24 09:55 Respiratory Rate 18 08/31/24 09:55 Blood Pressure 124/74 08/31/24 09:55 Pulse Oximetry 98 08/31/24 09:55 Oxygen Delivery Room Air 08/31/24 09:55 Temperature 36.9 C 08/31/24 09:55 Pulse Rate 81 08/31/24 09:55 Respiratory Rate 18 08/31/24 09:55 Blood Pressure 124/74 08/31/24 09:55 Pulse Oximetry 98 08/31/24 09:55 Oxygen Delivery Room Air 08/31/24 09:55 Discharge Plan Discharge Clinical Impression: Abscess, dental, Sinusitis Patient Disposition: Home Condition: Stable Instructions: Antibiotic Form, Dental Abscess (ED), Sinusitis (ED) Patient Language: Azeri Prescriptions: New amoxicillin-pot clavulanate 875-125 mg tablet 1 tablet PO Q12H Qty: 20 0RF No Action lisinopril 20 mg tablet 20 mg PO DAILY ergocalciferol (vitamin D2) 1,250 mcg (50,000 unit) capsule 1,250 mcg PO DAILY Follow-up/Referrals: Koko,SUDHA Velez [Primary Care Provider] - Time of Disposition: 10:47
== END 2024-08-31 10:52 | disposition home or self-care (01) ==
PROVIDERS: Emergency Provider Nurse Practitioner; PCP Nurse Practitioner Family
DX: K04.7 Periapical abscess without sinus (principal); J32.9 Chronic sinusitis, unspecified
CPT/HCPCS: 99213; G0463

== ENCOUNTER 2024-10-09 08:18 | Emergency (ER) | payer OTHER, SELFPAY ==
--- OUTSIDE RECORDS SUMMARY | 2024-10-09 08:21 | XMS_ITS | Clinical Summary ---
Author Organization [facility] Address [address] [place] [address] Phone Care Team Providers Care Air Technician Name Role Phone Provider, None Primary Care [...] 147.3 cm (4' 10) 01/11/2022 3:53 PM COUNSELOR AIDE Body Mass Index 36.22 01/11/2022 3:53 PM COUNSELOR AIDE Plan of Treatment Health Maintenance Due Date Last Done Comments Hepatitis C Virus (HCV) Screening 1978 TdaP Immunization 1978 Hepatitis B Immunization (1 of 3 - 19+ 3-dose series) 1997 Cologuard 2023 Colonoscopy 2023 Colorectal Cancer Screening 2023 Immunochemical Fecal Occult Blood 2023 SARS-COV-2 Immunization ( season) 2023 Influenza Immunization (#1) 11/01/202401/02, 02/16/2021, 12/07/2018 Respiratory Syncytial Virus (RSV) Immunization [...] age to complete this topic Insurance MEDICAID [place] Care Teams Air Technician Relationship Specialty Start Date End Date Provider, None [place] PCP - General 10/01/21
--- OUTSIDE RECORDS SUMMARY | 2024-10-09 08:21 | XMS_ITS | Clinical Summary ---
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 Gender Identity Not on file Sexual Orientation [...] Regular Well Visit/Exam 18-64 01/15/1996 Influenza Vaccine (#1) 2024 , 12/07/2018 HPV Vaccines Aged Out No longer [...] CDT) Influenza A Ag, POC Negative Negative [facility] Influenza B Ag, POC Negative Negative [facility] COVID-19 Ag POC Presumptive Negative Presumptive Negative, Invalid [facility] Nasal 07/13/2024 11:3 0 AM CDT us Zehra Borrero NP POINT OF CARE TEST ORDERAB LES Final Result [facility] EDW [address] [place] [address], [facility] from Last 3 Months Insurance [facility] Care Teams Laboratory Chemical Assistant Relationship Specialty Start Date End Date Rosie Sutherland NP [address] [address] PCP - General Family Medicine 07/27/24
--- OUTSIDE RECORDS SUMMARY | 2024-10-09 08:21 | XMS_ITS | Clinical Summary ---
Author Organization [facility] Address [address] [place] [address] Care Team Providers Care Supervisor Sawing And Assembly Name Role Phone Cristiana Hi Rasheed SERVICE WORKER HELPER-BELT LOOP CUTTER Primary Care Provider [phone] Source Comments [facility],non-owned Affiliates and Associated Physician Practices is amultiple site organization consisting of ambulatory clinics and hospital sitesin [place], [place], [place] and [place]. This disclosure is being madepursuant to the Care Everywhere program and may not contain all information available regarding this patient. 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
--- NOTE | 2024-10-09 08:22 | ED_ITS ---
HPI - Skin/Abscess/Foreign Bdy General Chief complaint: Skin/Abscess/Foreign Body Stated complaint: sore under/back right arm Time Seen by Provider: 10/09/24 08:22 Source: patient Mode of arrival: ambulatory Limitations: no limitations History of Present Illness HPI narrative: Charles is a 44 year old male patient presenting to the clinic today with c/o a possible inflamed skin tag or mole to the right upper back x1 week. He reports it is causing him pain. Initially scratched the area with a back asp web developer because it was itching 1 week ago, the skin tag became inflamed and tender. The area is tender to touch and painful to lay on the right side. No fever, chills, or body aches. Denies any drainage or bleeding. Has not taken anything for pain. Related Data Home Medications ?Medication ?Instructions ?Recorded ?Confirmed ?Last Taken ?Type ergocalciferol (vitamin D2) 1,250 1,250 mcg PO DAILY 01/06/24 01/06/24 Unknown History mcg (50,000 unit) capsule lisinopril 20 mg tablet 20 mg PO DAILY 01/06/24 01/06/24 Unknown History Allergies Allergy/AdvReac Type Severity Reaction Status Date / Time No Known Allergies Allergy Verified 08/31/24 10:05 Review of Systems Review of Systems: Pertinent positives per HPI. Patient denies any fever, chills, rash, headache, visual changes, dizziness, cough, runny nose, sore throat, shortness of breath, chest pain, palpitations, nausea, vomiting, diarrhea, constipation, abdominal pain, or any urinary issues. PMFSH Past Medical History Medical History No significant past medical history Surgical History Surgical History H/O wrist surgery Family History Family History Mother Family history non-contributory Social History Social History Smoking status: Never smoker Alcohol intake: never Substance use: never Gender identity (if verbalized by the patient): Male Comments At the time of my signature, I reviewed and agree with the nursing past medical, surgical, social, and family history. There is no relevant family history pertinent to the patient complaint. Exam Narrative: General: Well-developed, well nourished, in no apparent distress Head: Normocephalic, atraumatic. Cardio: Regular rate and rhythm, s1 and s2 normal, no murmur appreciated. Resp: Clear to auscultation bilaterally, no rhonchi, rales, wheezing or rubs. Integumentary: [place], warm, and dry, inflamed/tender to touch skin tag to the right upper back with localized redness. Course Course Emergency Course: Portions of this record may have been created with voice recognition software. Level of Care: Express Care Visit Vital Signs Vital signs: Vital Signs Temperature 36.7 C 10/09/24 08:36 Pulse Rate 88 10/09/24 08:36 Respiratory Rate 20 10/09/24 08:36 Blood Pressure 143/80 H 10/09/24 08:36 Pulse Oximetry 100 10/09/24 08:36 Oxygen Delivery Room Air 10/09/24 08:36 Temperature 36.7 C 10/09/24 08:36 Pulse Rate 88 10/09/24 08:36 Respiratory Rate 20 10/09/24 08:36 Blood Pressure 143/80 H 10/09/24 08:36 Pulse Oximetry 100 10/09/24 08:36 Oxygen Delivery Room Air 10/09/24 08:36 Vital signs reviewed Procedures Other Procedure Procedure 1: Other Procedure: Verbal consent obtained for skin tag removal to right upper back. Risk including bleeding, scarring, and infection and benefits-removing the cause of pain, itching, and risk for infection were reviewed with the patient he voiced understanding. Area was cleansed using antiseptic wound wash and patted dry with 4 x [address]ps and iris scissors were used for removal. After removal he was re-cleansed with antiseptic wound wash and patted dry with sterile 4 x 4 gauze. Bleeding controlled. Triple antibiotic ointment and Band-Aid applied. Patient tolerated well. MDM - Skin/Abscess/Foreign Bdy MDM Narrative Medical decision making narrative: At the time of visit patient is resting comfortably on the exam table. Patient appears to be nontoxic. C/o a possible inflammed skin tag or mole to the right upper back x1 week. He reports it is causing him pain. Initially scratched the area with a back asp web developer because it was itching 1 week ago, the skin tag became inflamed and tender. The area is tender to touch and painful to lay on the right side. No fever, chills, or body aches. Denies any drainage or bleeding. Has not taken anything for pain. Offered to remove skin tag and patient would like to have it removed. Risk and benefits of skin tag removal reviewed. Procedures: Skin tag removed in the clinic today using a pair of forceps and iris scissors. Patient tolerated well. Area was cleansed with wound wash and Band-Aid and triple antibiotic ointment applied. Plan: Skin tag removed. Watch for signs and symptoms of infection. Supportive measures were discussed with the patient and they voiced understanding discharge instructions and agrees to treatment plan. Return precautions reviewed Differential Diagnosis Differential diagnosis: Likely abscess of skin or subcutaneous tissue, viral exanthem, dermatophytosis, urticaria, herpes zoster, allergic reaction to drug, cellulitis, eczema, insect bites, impetigo and contact dermatitis Discharge Plan Discharge Clinical Impression: Skin tag Patient Disposition: Home Condition: Stable Instructions: Antibiotic Form Additional Instructions: Skin tag removed in the clinic today. Keep area clean and dry May apply triple antibiotic ointment to the wound twice daily x 48 hours Wash daily with soap and water Follow up with your PCP as needed. Patient Language: Fijian Prescriptions: No Action lisinopril 20 mg tablet 20 mg PO DAILY ergocalciferol (vitamin D2) 1,250 mcg (50,000 unit) capsule 1,250 mcg PO DAILY amoxicillin-pot clavulanate 875-125 mg tablet 1 tablet PO Q12H Qty: 20 0RF Follow-up/Referrals: Koko,SUDHA Velez [Primary Care Provider] - Time of Disposition: 08:52 Quality NIHSS Nursing Documentation ED NIHSS nursing documentation: reviewed/agree
[2024-10-09 08:36] VITALS: BP 143/80; PULSE 88; RESP 20; TEMP 36.7; O2SAT 100
== END 2024-10-09 08:53 | disposition home or self-care (01) ==
PROVIDERS: Emergency Provider Nurse Practitioner Family; PCP Nurse Practitioner Family
DX: L91.8 Other hypertrophic disorders of the skin (principal)
CPT/HCPCS: 11200; 99212; G0463